=== PATIENT | female | born 1950 | race Caucasian/White ===

== ENCOUNTER → 2020-07-29 | Outpatient (CLI) | payer MEDICARE ==
--- NOTE | 2020-07-29 17:05 | BD ---
EXAMINATION TYPE: Axial Bone Density DATE OF EXAM: 07/29/2020 COMPARISON: NONE CLINICAL HISTORY: 70 YR OLD FEMALE.....ICD-10 CODE: Z78.0 Height: 63.1 Weight: 179 FRAX RISK QUESTIONS: Secondary Osteoporosis: YES 3. Menopause before 45: YES, AT 46 RISK FACTORS HISTORY OF: Postmenopausal woman: YES, AT ABOUT AT 46 YRS OLD Take estrogen and/or progesterone medications: IN THE PAST FOR ABOUT 4 YRS, TILL 50 YRS OLD Hyperparathyroidism: NO Adrenal Insufficiency: NO MEDICATIONS: Additional Medications: BLOOD THINNERS, BABY ASPIRIN, STATIN FOR CHOLESTEROL, VIT D, Additional History: CHOLESTEROL, HX OF BLOOD CLOTS, AND STROKE, EXAM MEASUREMENTS: Bone mineral densitometry was performed using the [employer] System. Bone mineral density as measured about the Lumbar spine is: ----- L1-L4(G/cm2): 1.343 T Score Values are as follows: ----- L1: 0.1 ----- L2: 0.6 ----- L3: 1.3 ----- L4: 2.7 ----- L1-L4: 1.4 Bone mineral density FIRST BONE DENSITY AT [facility] Bone mineral density about the R hip (g/cm2): 0.902 Bone mineral density about the L hip (g/cm2): 0.872 T Score values are as follows: -----R Neck: -1.5 -----L Neck: -1.7 -----R Total: -0.8 -----L Total: -1.1 Bone mineral density FIRST AT [facility] FRAX%s: THERE IS A 9.7% CHANCE FOR A MAJOR OSTEOPOROTIC FX AND A 1.3% FOR HIP......PROBABILITY FOR FX IN 10 YRS TIME IMPRESSION: Osteopenia (T Score between -2.5 and -1). There is slightly increased risk of fracture and the patient may be considered for treatment. Re-Screen 2-5 years. NOTE: T-SCORE=SD OF THE YOUNG ADULT MEAN.
--- NOTE | 2020-08-04 09:14 | MM ---
Reason for exam: screening (asymptomatic). Last mammogram was performed 3 years ago. History: Patient is postmenopausal. Family history of premenopausal breast cancer in sister at age 50 and breast cancer in aunt at age 60. Physical Findings: A clinical breast exam by your physician is recommended on an annual basis and results should be correlated with mammographic findings. MG Screening Mammo w CAD Bilateral CC and MLO view(s) were taken. Prior study comparison: August 03, 2017, mammogram, performed at [facility]. There are scattered fibroglandular densities. There are benign appearing round calcifications in the right breast. There is no discrete abnormality. ASSESSMENT: Negative, BI-RAD 1 RECOMMENDATION: Routine screening mammogram of both breasts in 1 year.
== END | disposition home or self-care (01) ==
LOC: RADMAMWWP 09:47
PROVIDERS: ATTEND Family Medicine
DX: Z12.31 Encounter for screening mammogram for malignant neoplasm of breast (principal); M85.80 Other specified disorders of bone density and structure, unspecified site; Z78.0 Asymptomatic menopausal state
CPT/HCPCS: 77067; 77080

== ENCOUNTER → 2021-06-24 | Outpatient (CLI) | payer MEDICARE ==
[2021-06-24 13:37] LABS: Basophils % (A) 0 %; Eosinophils # (A) 0.1 k/uL (0-0.7); Eosinophils % (A) 1 %; HCT 42.9 % (34.0-46.0); HGB 13.8 gm/dL (11.4-16.0); Lymphocytes # (A) 1.1 k/uL (1.0-4.8); Lymphocytes % (A) 15 %; MCH 29.3 pg (25.0-35.0); MCHC 32.2 g/dL (31.0-37.0); Mean Platelet Volume 8.7; Monocytes # (A) 0.5 k/uL (0-1.0); Monocytes % (A) 7 %; Neutrophils # (A) 5.4 k/uL (1.3-7.7); Neutrophils % (A) 76 %; Platelet Count 269 k/uL (150-450); RDW 13.3 % (11.5-15.5); WBC 7.1 k/uL (3.8-10.6)
[2021-06-24 13:50] LABS: Calcium 9.5 mg/dL (8.4-10.2); Potassium 4.9 mmol/L (3.5-5.1)
[2021-06-24 13:52] LABS: MCV 91.2 fL (80.0-100.0)
[2021-06-24 14:39] LABS: Prothrombin Time 10.7 sec (9.0-12.0)
--- NOTE | 2021-06-24 16:47 | US ---
EXAMINATION TYPE: US kidneys/renal and bladder DATE OF EXAM: 06/24/2021 COMPARISON: NONE CLINICAL HISTORY: R31.9 Hematuria. Pt states painless gross hematuria x 3 days EXAM MEASUREMENTS: Right Kidney: 9.6 x 4.2 x 4.5 cm Left Kidney: 9.9 x 4.1 x 4.0 cm Right Kidney: wnl Left Kidney: No evidence of hydro, possible renal calculi mid/lateral= 3mm in size Bladder: wnl Bilateral Jets seen: No IMPRESSION: 1. Nonobstructing left renal stone. 2. Renal ultrasound otherwise appears unremarkable. 3. Note is made ureteral jets are not identified during this exam.
== END | disposition home or self-care (01) ==
LOC: RADUSWWP 12:11
PROVIDERS: ATTEND Family Medicine
DX: N20.0 Calculus of kidney (principal)
CPT/HCPCS: 36415; 76770; 80048; 85025; 85610; 85730

== ENCOUNTER → 2021-07-09 | Outpatient (CLI) | payer MEDICARE ==
--- NOTE | 2021-07-09 13:16 | CT ---
EXAMINATION TYPE: CT urogram wo/w con DATE OF EXAM: 07/09/2021 HISTORY: Gross hematuria CT DLP: 3580mGycm Automated Exposure Control for Dose Reduction was Utilized. CONTRAST: CT scan of the abdomen and pelvis is performed without oral and without and with IV Contrast, patient injected with 100 ml mL of Isovue 300. Urogram protocol with 3-D reconstructed images created on an independent workstation and reviewed. COMPARISON: Renal ultrasound June 24, 2021 FINDINGS: KUB: Noncontrast images show no renal calculi bilaterally. Postcontrast images show symmetric medulla ry uptake and excretion without hydronephrosis or concerning solid or cystic renal mass in either kid colleen. Visualized portion of both ureters show no suspicious mass or calculus. Urinary bladder fills wi th contrast without suspicious intraluminal mass or calculus. Single inferior right-sided pelvic phle bolith axial image 146 series 3 noted. Adjacent smaller pelvic phleboliths inferior to this are prese nt. LUNG BASES: No significant abnormality is appreciated. LIVER/GB: No significant abnormality is appreciated. PANCREAS: No significant abnormality is seen. SPLEEN: No significant abnormality is seen. ADRENALS: No significant abnormality is seen. BOWEL: There is moderate size hiatal hernia. Appendix within normal limits from base of cecum. Some s igmoid colonic diverticula. No CT evidence for acute diverticulitis. No suspicious small or large bow el dilatation. UTERUS/ADNEXA: Uterus surgically absent. LYMPH NODES: No greater than 1cm abdominal or pelvic lymph nodes are appreciated. OSSEOUS STRUCTURES: Grade 1 anterolisthesis L4 on L5. Moderate disc space narrowing with vacuum disc phenomenon L4-L5 level. Mild disc space narrowing L3-L4 level. Multilevel facet arthropathy mid to lo wer lumbar spine. Moderate axial joint space loss in both hips. OTHER: No significant additional abnormality is seen. IMPRESSION: Source of hematuria not identified. No left-sided renal calculi seen.
== END | disposition home or self-care (01) ==
LOC: RADCTMAIN 10:02
PROVIDERS: ATTEND Urology
DX: R31.0 Gross hematuria (principal)
CPT/HCPCS: 82565; 84520; 74178; 36415; 74400; Q9967

== ENCOUNTER → 2022-05-17 | Outpatient (CLI) | payer MEDICARE ==
--- NOTE | 2022-05-18 09:56 | MM ---
Reason for Exam: Screening (asymptomatic). Last mammogram was performed 1 year(s) and 9 month(s) ago. Patient History: Menarche at age 16. First Full-Term at age 21. Left ovary removed at age 47. Right ovary removed at age 47. Hysterectomy at age 47. Postmenopausal. Maternal aunt had breast cancer, age 60. Sister had breast cancer, age 50. Risk Values: Allyson 5 year model risk: 2.9%. NCI Lifetime model risk: 8.4%. Prior Study Comparison: 01/01/2008 Bilateral Screening Mammogram, [facility]. 08/03/2017 Screening Mammogram, [facility]. 07/29/2020 Bilateral Screening Mammogram, [facility]. Tissue Density: There are scattered fibroglandular densities. Findings: Analyzed By CAD. There is no suspicious group of microcalcifications or new suspicious mass in either breast. No significant change from prior exams. Overall Assessment: Negative, BI-RAD 1 Management: Screening Mammogram of both breasts in 1 year. A clinical breast exam by your physician is recommended on an annual basis and results should be correlated with mammographic findings. Electronically signed and approved by: Ward Mcgowan D.O.
== END | disposition home or self-care (01) ==
LOC: RADMAMWWP 12:44
PROVIDERS: ATTEND Family Medicine
DX: Z12.31 Encounter for screening mammogram for malignant neoplasm of breast (principal); Z78.0 Asymptomatic menopausal state; Z80.3 Family history of malignant neoplasm of breast
CPT/HCPCS: 77067

== ENCOUNTER 2023-04-27 13:41 | Inpatient (IN) | payer MEDICARE ==
[2023-04-27] MEDS ORDERED: DILTIAZEM DRIP BOLUS FROM BAG 1 MG SOLN IV ONE (14:30)
[2023-04-27] MEDS ORDERED: SODIUM CHLORIDE 0.9% 500 ML 500 ML IV STA (14:33)
[2023-04-27 14:44] LABS: Anisocytosis Slight; Basophils % (A) 0 %; Eosinophils # (A) 0.1 k/uL (0-0.7); Eosinophils % (A) 1 %; HCT 33.1 % (34.0-46.0); Hypochromasia Marked; Lymphocytes # (A) 1.3 k/uL (1.0-4.8); Lymphocytes % (A) 16 %; MCH 20.6 pg (25.0-35.0); MCHC 30.1 g/dL (31.0-37.0); MCV 68.5 fL (80.0-100.0); Microcytosis Marked; Monocytes # (A) 0.6 k/uL (0-1.0); Monocytes % (A) 7 %; Neutrophils % (A) 74 %; Platelet Count 357 k/uL (150-450); Poikilocytosis Slight; RBC 4.83 m/uL (3.80-5.40); RDW 17.7 % (11.5-15.5); WBC 8.1 k/uL (3.8-10.6)
[2023-04-27] MEDS: DILTIAZEM 125 MG in SODIUM CHLORIDE 0.9% 100 ML IV SCH ×2 (14:52→23:21)
[2023-04-27 14:57] LABS: ALT 14 U/L (4-34); AST 27 U/L (14-36); African American GFR (CKD) 71 (>60 ml/min/1.73 sqM); Albumin 3.8 g/dL (3.5-5.0); Alkaline Phosphatase 98 U/L (38-126); Anion Gap 9 mmol/L; Blood Urea Nitrogen 20 mg/dL (7-17); Calcium 9.2 mg/dL (8.4-10.2); Carbon Dioxide 23 mmol/L (22-30); Chloride 107 mmol/L (98-107); Glucose 92 mg/dL (74-99); Non-African American GFR(CKD) 61 (>60 ml/min/1.73 sqM); Partial Thromboplastin Time 23.4 sec (22.0-30.0); Prothrombin Time 10.6 sec (9.0-12.0); Sodium 139 mmol/L (137-145); Total Bilirubin 0.6 mg/dL (0.2-1.3); Total Protein 6.7 g/dL (6.3-8.2)
--- NOTE | 2023-04-27 15:04 | XR ---
EXAMINATION TYPE: XR chest 2V DATE OF EXAM: 04/27/2023 COMPARISON: NONE TECHNIQUE: PA and lateral views submitted. HISTORY: Dysrhythmia FINDINGS: The lungs are clear and there is no pneumothorax, pleural effusion, or focal pneumonia. Heart size normal and no overt failure. Osseous structures demonstrate hypertrophic and degenerative changes of the spine. Limited inspiration with elevated right hemidiaphragm. Retrocardiac density could represen t a hiatal hernia. IMPRESSION: 1. No acute process. Suspect large retrocardiac density represents hiatal hernia as previously noted by CT exam 07/09/2021.
--- NOTE | 2023-04-27 15:28 | ED ---
General Adult HPI - General Chief complaint: Arrhythmia/Palpitations Stated complaint: Rapid Heart Beat-sent by Time Seen by Provider: 04/27/23 14:10 Source: patient, RN notes reviewed, old records reviewed Mode of arrival: ambulatory - History of Present Illness Initial comments: This is a 72-year-old female presents emergency Department with a past medical history significant for atrial fibrillation. Patient states she was at her doctor's office when it was determined that her heart was racing so she was sent to the emergency department.patient denies any palpitations. Patient denies chest pain. Patient denies any difficulty breathing shortness of breath per patient denies any recent fever chills or cough. Patient denies any abdominal pain patient denies nausea vomiting diarrhea. Patient denies headache patient denies numbness weakness. - Related Data Home Medications Medication Instructions Recorded Confirmed Apixaban [Eliquis] 5 mg PO BID 04/27/23 04/27/23 Aspirin EC [Ecotrin Low Dose] 81 mg PO DAILY 04/27/23 04/27/23 Atorvastatin [Lipitor] 40 mg PO HS 04/27/23 04/27/23 Cholecalciferol [Vitamin D3 (25 50 mcg PO DAILY 04/27/23 04/27/23 Mcg = 1000 Iu)] Flecainide [Tambocor] 50 mg PO Q12HR 04/27/23 04/27/23 Allergies Allergy/AdvReac Type Severity Reaction Status Date / Time No Known Allergies Allergy Verified 04/27/23 14:31 Review of Systems ROS Statement: Those systems with pertinent positive or pertinent negative responses have been documented in the HPI. ROS Other: All systems not noted in ROS Statement are negative. Past Medical History Past Medical History: Atrial Fibrillation History of Any Multi-Drug Resistant Organisms: None Reported Past Surgical History: Hysterectomy Past Psychological History: No Psychological Hx Reported Smoking Status: Never smoker Past Alcohol Use History: None Reported Past Drug Use History: None Reported General Exam - General Exam Comments Initial Comments: GENERAL: Patient is well-developed and well-nourished. Patient is nontoxic and well- hydrated and is in mild distress. ENT: Neck is soft and supple. No significant lymphadenopathy is noted. Oropharynx is clear. Moist mucous membranes. Neck has full range of motion without eliciting any pain. EYES: The sclera were anicteric and conjunctiva were pink and moist. Extraocular movements were intact and pupils were equal round and reactive to light. Eyelids were unremarkable. PULMONARY: Unlabored respirations. Good breath sounds bilaterally. No audible rales rhonchi or wheezing was noted. CARDIOVASCULAR: Patient's heart rate is about 150 beats a minute ABDOMEN: Soft and nontender with normal bowel sounds. SKIN: Skin is clear with no lesions or rashes and otherwise unremarkable. NEUROLOGIC: Patient is alert and oriented x3. Cranial nerves II through XII are grossly intact. Motor and sensory are also intact. Normal speech, volume and content. Symmetrical smile. MUSCULOSKELETAL: Normal extremities with adequate strength and full range of motion. No lower extremity swelling or edema. No calf tenderness. LYMPHATICS: No significant lymphadenopathy is noted PSYCHIATRIC: Normal psychiatric evaluation. Course Vital Signs 04/27/23 04/27/23 13:44 15:15 Temperature 98.1 F Pulse Rate 151 H 140 H Respiratory 18 18 Rate Blood Pressure 124/81 130/91 O2 Sat by Pulse 98 99 Oximetry Medical Decision Making - Medical Decision Making EKG as interpreted by myself. EKG shows atrial flutter at 148 bpm QRS 166 QT interval 310 QTC is 395 per patient's EKG shows no ST segment patient or dep ression Was pt. sent in by a medical professional or institution (, PA, CUSTOMER CONSULTING MANAGER, urgent care, hospital, or skilled nursing...) When possible be specific @ -Patient was sent in by her primary medical care doctor Did you speak to anyone other than the patient for history (EMS, parent, family, police, friend...)? What history was obtained from this source @ -No Did you review nursing and triage notes (agree or disagree)? Why? @ -I reviewed and agree with nursing and triage notes Were old charts reviewed (outside hosp., previous admission, EMS record, old EKG, old radiological studies, urgent care reports/EKG's, skilled nursing records)? Report findings @ -I reviewed prior charts from prior labwork on this patient Differential Diagnosis (chest pain, altered mental status, abdominal pain women, abdominal pain men, vaginal bleeding, weakness, fever, dyspnea, syncope, headache, dizziness, GI bleed, back pain, seizure, CVA, palpatations, mental health, musculoskeletal)? @ -Differential Palpitations Ventricular arrhythmias, atrial arrhythmias, myocardial infarction, anemia, thyrotoxicosis, electrolyte imbalance, hypokalemia, pulmonary embolism, pulmonary disease, drugs, alcohol, anxiety, stress.... This is not meant to be an all-inclusive list. EKG interpreted by me (3pts min.). @ -As above X-rays interpreted by me (1pt min.). @ -Chest x-ray showed no acute abnormality CT interpreted by me (1pt min.). @ -None done U/S interpreted by me (1pt. min.). @ -None done What testing was considered but not performed or refused? (CT, X-rays, U/S, labs)? Why? @ -None What meds were considered but not given or refused? Why? @ -None Did you discuss the management of the patient with other professionals (professionals i.e. , PA, CUSTOMER CONSULTING MANAGER, lab, RT, psych nurse, social media campaign manager, theatrical performer, teacher, maritime officer, case maker)? Give summary @ -I spoke with some physicians they agreed to admit the patient I admitted the patient I wrote admitting orders Was smoking cessation discussed for >3mins.? @ -No Was critical care preformed (if so, how long)? @ -35 minutes Were there social determinants of health that impacted care today? How? (Homelessness, low income, unemployed, alcoholism, drug addiction, transportation, low edu. Level, literacy, decrease access to med. care, longterm, rehab)? @ -No Was there de-escalation of care discussed even if they declined (Discuss DNR or withdrawal of care, Hospice)? DNR status @ -No What co-morbidities impacted this encounter? (DM, HTN, Smoking, COPD, CAD, Cancer, CVA, ARF, Chemo, Hep., AIDS, mental health diagnosis, sleep apnea, mor bid obesity)? @ -None Was patient admitted / discharged? Hospital course, mention meds given and route, prescriptions, significant lab abnormalities, going to OR and other pertinent info. @ -I started the patient on Cardizem after Cardizem bolus. Patient's heart rate did start to slow down and she remained asymptomatic. I spoke with some physicians he agreed to admit the patient admitted the patient wrote admitting orders and I consulted cardiology. Undiagnosed new problem with uncertain prognosis? @ -No Drug Therapy requiring intensive monitoring for toxicity (Heparin, Nitro, Insulin, Cardizem)? @ -No Were any procedures done? @ -No Diagnosis/symptom? @ -A. fib with rapid ventricular response Acute, or Chronic, or Acute on Chronic? @ -Acute Uncomplicated (without systemic symptoms) or Complicated (systemic symptoms)? @ -Complicated Side effects of treatment? @ -No Exacerbation, Progression, or Severe Exacerbation? @ -No Poses a threat to life or bodily function? How? (Chest pain, [place], [place], pneumonia, PE, COPD, DKA, ARF, appy, cholecystitis, CVA, Diverticulitis, Homicidal, Suicidal, threat to staff... and all critical care pts) @ -Yes this can lead to poor perfusion and end organ dysfunction - Lab Data Result diagrams: 04/27/23 14:36 04/27/23 14:36 Lab Results 04/27/23 04/27/23 04/27/23 Range/Units 14:36 14:36 14:36 WBC 8.1 (3.8-10.6) k/uL RBC 4.83 (3.80-5.40) m/uL Hgb 10.0 L (11.4-16.0) gm/dL Hct 33.1 L (34.0-46.0) % MCV 68.5 L (80.0-100.0) fL MCH 20.6 L (25.0-35.0) pg MCHC 30.1 L (31.0-37.0) g/dL RDW 17.7 H (11.5-15.5) % Plt Count 357 (150-450) k/uL MPV 7.0 Neutrophils % 74 % Lymphocytes % 16 % Monocytes % 7 % Eosinophils % 1 % Basophils % 0 % Neutrophils # 6.0 (1.3-7.7) k/uL Lymphocytes # 1.3 (1.0-4.8) k/uL Monocytes # 0.6 (0-1.0) k/uL Eosinophils # 0.1 (0-0.7) k/uL Basophils # 0.0 (0-0.2) k/uL Hypochromasia Marked Poikilocytosis Slight Anisocytosis Slight Microcytosis Marked PT 10.6 (9.0-12.0) sec INR 1.0 (<1.2) APTT 23.4 (22.0-30.0) sec Sodium 139 (137-145) mmol/L Potassium 5.0 (3.5-5.1) mmol/L Chloride 107 (98-107) mmol/L Carbon Dioxide 23 (22-30) mmol/L Anion Gap 9 mmol/L BUN 20 H (7-17) mg/dL Creatinine 0.95 (0.52-1.04) mg/dL Est GFR (CKD-EPI)AfAm 71 (>60 ml/min/1.73 sqM) Est GFR (CKD-EPI)NonAf 61 (>60 ml/min/1.73 sqM) Glucose 92 (74-99) mg/dL Calcium 9.2 (8.4-10.2) mg/dL Magnesium 2.0 (1.6-2.3) mg/dL Total Bilirubin 0.6 (0.2-1.3) mg/dL AST 27 (14-36) U/L ALT 14 (4-34) U/L Alkaline Phosphatase 98 (38-126) U/L Troponin I (0.000-0.034) ng/mL Total Protein 6.7 (6.3-8.2) g/dL Albumin 3.8 (3.5-5.0) g/dL 04/27/23 Range/Units 14:36 WBC (3.8-10.6) k/uL RBC (3.80-5.40) m/uL Hgb (11.4-16.0) gm/dL Hct (34.0-46.0) % MCV (80.0-100.0) fL MCH (25.0-35.0) pg MCHC (31.0-37.0) g/dL RDW (11.5-15.5) % Plt Count (150-450) k/uL MPV Neutrophils % % Lymphocytes % % Monocytes % % Eosinophils % % Basophils % % Neutrophils # (1.3-7.7) k/uL Lymphocytes # (1.0-4.8) k/uL Monocytes # (0-1.0) k/uL Eosinophils # (0-0.7) k/uL Basophils # (0-0.2) k/uL Hypochromasia Poikilocytosis Anisocytosis Microcytosis PT (9.0-12.0) sec INR (<1.2) APTT (22.0-30.0) sec Sodium (137-145) mmol/L Potassium (3.5-5.1) mmol/L Chloride (98-107) mmol/L Carbon Dioxide (22-30) mmol/L Anion Gap mmol/L BUN (7-17) mg/dL Creatinine (0.52-1.04) mg/dL Est GFR (CKD-EPI)AfAm (>60 ml/min/1.73 sqM) Est GFR (CKD-EPI)NonAf (>60 ml/min/1.73 sqM) Glucose (74-99) mg/dL Calcium (8.4-10.2) mg/dL Magnesium (1.6-2.3) mg/dL Total Bilirubin (0.2-1.3) mg/dL AST (14-36) U/L ALT (4-34) U/L Alkaline Phosphatase (38-126) U/L Troponin I <0.012 (0.000-0.034) ng/mL Total Protein (6.3-8.2) g/dL Albumin (3.5-5.0) g/dL Critical Care Time Critical Care Time: Yes Total Critical Care Time: 35 Disposition Clinical Impression: Atrial fibrillation with rapid ventricular response Disposition: ADMITTED IP TO THIS HOSP Referrals: Juan Diego Tolbert MD [Primary Care Provider] - 1-2 days Time of Disposition: 16:02
[2023-04-27] MEDS ORDERED: NITROGLYCERIN SL TABS 0.4 MG TAB SUBLINGUAL PRN (16:03)
[2023-04-27] MEDS ORDERED: ATORVASTATIN 40 MG TAB PO SCH (21:00)
[2023-04-27] MEDS ORDERED: FLECAINIDE 50 MG TAB PO SCH (21:00)
[2023-04-27] MEDS: APIXABAN 5 MG TAB PO SCH (21:01)
[2023-04-27] MEDS ORDERED: DIGOXIN 250 MCG TAB PO STA (21:15)
--- NOTE | 2023-04-28 04:02 | P.HPIM ---
History of Present Illness H&P Date: 04/27/23 Chief Complaint: afib 72 year old female with afib patient was sent in from her PCP office due to afib with RVR. she is asymptomatic ,and went to her PCP office for routine visit, thats when she was found to be in afib with RVR, she denies palpitations chest pain , SOB, diz ziness, profuse sweating. she claims that she feels completely normal , no changes has been made recently to her meds. she was also found to have microcytic anemia , she takes eliquis for afib , but denies any vaginal or GI bleeding , she is not aware of any history of microcytic anemia denies any recent travel or hospital stay , denies any active cancer or history of blood clots. denies any cough, sore throat, fever, chills. nasuea or vomiting review of systems Pertinent positives as noted in HPI. All other systems were reviewed and are negative on exam Constitutional: No acute distress, conversant, pleasant Eyes: Anicteric sclerae, moist conjunctiva, Pupils equal round reactive to light ENMT: NC/AT Oropharynx clear, no erythema, or exudates Neck: Supple, no masses, or JVD No carotid bruits No thyromegaly Lungs: Clear to auscultation Clear to percussion Normal respiratory effort, no accessory muscle use Cardiovascular: Heart irregular in rate and rhythm, No murmurs, gallops, or rubs No peripheral edema Abdominal: Soft Nontender, no guarding, rebound or rigidity Abdomen moving with respiration Normoactive bowel sounds No hepatomegaly, No splenomegaly No palpable mass No abdominal wall hernia noted Extremities: No digital cyanosis No clubbing Pedal pulses intact and symmetrical Radial pulses intact and symmetrical No calf tenderness Psychiatric: Alert and oriented to person, place and time Appropriate affect fair judgement Neuro Muscles Strength 5/5 in all 4 extremities Sensation to light touch grossly present throughout Cranial nerves II-XII grossly intact Lymphatics: no palpable cervical or supraclavicular lymph nodes 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 Past Anesthesia/Blood Transfusion Reactions: No Reported Reaction Smoking Status: Never smoker - Past Family History Sister(s) Family Medical History: AFIB Mother Family Medical History: AFIB Medications and Allergies Home Medications Medication Instructions Recorded Confirmed Type Apixaban [Eliquis] 5 mg PO BID 04/27/23 04/27/23 History Aspirin EC [Ecotrin Low Dose] 81 mg PO DAILY 04/27/23 04/27/23 History Atorvastatin [Lipitor] 40 mg PO HS 04/27/23 04/27/23 History Cholecalciferol [Vitamin D3 (25 50 mcg PO DAILY 04/27/23 04/27/23 History Mcg = 1000 Iu)] Flecainide [Tambocor] 50 mg PO Q12HR 04/27/23 04/27/23 History Allergies Allergy/AdvReac Type Severity Reaction Status Date / Time No Known Allergies Allergy Verified 04/27/23 14:31 Physical Exam Vitals: Vital Signs Temp Pulse Pulse Pulse Resp BP BP 04/27/23 23:17 97.8 F 126 H 17 112/76 04/27/23 19:45 97.6 F 138 H 16 108/77 04/27/23 18:15 144 H 108/73 04/27/23 17:54 98 F 149 H 20 124/88 04/27/23 16:46 146 H 18 113/80 04/27/23 15:15 140 H 18 130/91 04/27/23 13:44 98.1 F 151 H 18 124/81 Pulse Ox 04/27/23 23:17 94 L 04/27/23 19:45 96 04/27/23 18:15 04/27/23 17:54 97 04/27/23 16:46 96 04/27/23 15:15 99 04/27/23 13:44 98 Intake and Output 04/27/23 04/27/23 04/28/23 14:59 22:59 06:59 Intake Total 22.25 80.333 Balance 22.25 80.333 Intake: IV 20 Diltiazem 125 mg In 20 Sodium Chloride 0.9% 100 ml @ 5 MG/HR 5 mls/hr IV .Q24H [facility] Rx#:[id number] Intake, IV Titration 2.25 80.333 Amount Diltiazem 125 mg In 2.25 80.333 Sodium Chloride 0.9% 100 ml @ 5 MG/HR 5 mls/hr IV .Q24H [facility] Rx#:[id number] Other: Voiding Method Toilet Weight 83.915 kg 83.915 kg Results CBC & Chem 7: 04/27/23 14:36 04/27/23 14:36 Labs: Abnormal Lab Results - Last 24 Hours (Table) 04/27/23 04/27/23 Range/Units 14:36 14:36 Hgb 10.0 L (11.4-16.0) gm/dL Hct 33.1 L (34.0-46.0) % MCV 68.5 L (80.0-100.0) fL MCH 20.6 L (25.0-35.0) pg MCHC 30.1 L (31.0-37.0) g/dL RDW 17.7 H (11.5-15.5) % BUN 20 H (7-17) mg/dL Thrombosis Risk Factor Assmnt - Choose All That Apply Each Factor Represents 1 point: Medical pt on bed rest Each Risk Factor Represents 2 Points: Age 61-74 years Thrombosis Risk Factor Assessment Total Risk Factor Score: 3 Thrombosis Risk Factor Assessment Level: Moderate Risk Assessment and Plan Assessment: 72 year old female with history of afib, found to have afib with RVR at her PCP office and sent to our facility , i discussed the case with ED doc and I accepte dthe admission for afib with RVR with anticipated length of stay > 2 midnights afib with RVR resume eliquis given cardizem bolus and started on drip. cardizem drip maxed with HR still in 140-150. patient loaded with digoxin, given initial dose of 500 mcg PO , then will give 250 mcg q 8hrs X 2 continue with flecainide bid ekg monitor monitor electrolytes K 5.0 Na 139 BUN 20 cr 0.9 monitor vital signs , GOal HR <110 trops negative liver enzymes unremarkable check TSH and free T4 microcytic anemia Hgb 10.0 MCV 68 denies history of thalacemia check iron studies denies any GI bleeding full code DVT PPX on eliquis for afib
[2023-04-28] MEDS ORDERED: SODIUM CHLORIDE 0.9% 1,000 ML IV SCH ×2 (04:15→09:30)
[2023-04-28] MEDS ORDERED: DIGOXIN 250 MCG TAB PO ONE (05:30)
[2023-04-28] MEDS: DILTIAZEM 125 MG in SODIUM CHLORIDE 0.9% 100 ML IV SCH (06:16)
[2023-04-28 08:55] LABS: Chol/HDL Ratio 2.32 Ratio; VLDL Calculation 17.24 mg/dL (5.00-40.00)
[2023-04-28] MEDS ORDERED: ASPIRIN 325 MG TAB PO SCH (09:00)
[2023-04-28] MEDS ORDERED: CHOLECALCIFEROL 25 MCG (1000 IU) TABLET PO SCH (09:00)
[2023-04-28] MEDS ORDERED: ASPIRIN 81 MG PO SCH (09:00)
[2023-04-28] MEDS ORDERED: FLECAINIDE 50 MG TAB PO SCH (09:00)
[2023-04-28] MEDS ORDERED: IV FLUID CONTINUATION 1,000 ML IV ONE (10:13)
[2023-04-28] MEDS ORDERED: PROPOFOL 10 MG/ML 20 ML VIAL IV ONE (10:13)
[2023-04-28 11:06] VITALS: RESP 16
[2023-04-28] MEDS: APIXABAN 5 MG TAB PO SCH (11:17)
[2023-04-28 11:19] VITALS: BP 107/58
--- NOTE | 2023-04-28 11:29 | P.CRDCN ---
History of Present Illness History of present illness: HISTORY OF PRESENT ILLNESS: This is a 72-year-old female with a past medical history significant for hyperlipidemia and paroxysmal atrial fibrillation/flutter. Patient follows with a library technology instructor in [place]. We have been asked to see the patient in consultation for a flutter with RVR. Patient examined at the bedside. Patient states yesterday she was at her primary care physician's office for routine appointment when she was found to be tachycardic. She states that she did not have any chest pain or pressure. She denied having any shortness of breath. She denied any dizziness or lightheadedness. Denied having any palpitations. The patient was instructed to come to the emergency room. The patient was found to be in a flutter with RVR. She was started on IV Cardizem. The patient states that she was started on flecainide back in February. She states she was supposed to have a cardioversion performed at that time but spontaneously converted to sinus mechanism. She reports she has been compliant with her anticoagulation and has not missed any doses. * EKG reveals atrial flutter with RVR * Chest xray negative for acute process * Current home cardiac medications include atorvastatin 40 mg at night, flecainide 50 mg twice a day, aspirin 81 mg daily, and Eliquis 5mg BID REVIEW OF SYSTEMS: At the time of my exam: CONSTITUTIONAL: Denies fever or chills. HEENT: Denies blurred vision, vision changes, or eye pain. Denies hemoptysis CARDIOVASCULAR: Denies chest pain. Denies orthopnea. Denies PND. Denies palpitations RESPIRATORY: Denies shortness of breath. GASTROINTESTINAL: Denies abdominal pain. Denies nausea or vomiting. HEMATOLOGIC: Denies bleeding disorders. GENITOURINARY: Denies any blood in urine. SKIN: Denies pruitis. Denies rash. PHYSICAL EXAM: VITAL SIGNS: Reviewed. GENERAL: Well-developed in no acute distress. HEENT: Head is normocephalic. Pupils are equal, round. Sclerae anicteric. Mucous membranes of the mouth are moist. Neck supple. No JVD or thyromegaly LUNGS: Respirations even and unlabored. Lungs essentially clear to auscultation bilaterally. HEART: Tachycardic. Regular rate and rhythm. S1 and S2 heard. ABDOMEN: Soft. Nondistended. Nontender. EXTREMITIES: Normal range of motion. No clubbing or cyanosis. Peripheral pulses intact. No lower extremity edema NEUROLOGIC: Awake and alert. Oriented x 3. ASSESSMENT: Typical atrial flutter with RVR History of paroxysmal atrial fibrillation Hyperlipidemia PLAN: Obtain 2-D echo to assess cardiac structure and function Resume home cardiac medications Increased flecainide to 100mg BID Patient to undergo cardioversion today with Dr. Lockhart Further recommendations pending patient's course Nurse practitioner note has been reviewed by physician. Signing provider agrees with the documented findings, assessment, and plan of care. 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 Past Anesthesia/Blood Transfusion Reactions: No Reported Reaction Smoking Status: Never smoker - Past Family History Sister(s) Family Medical History: AFIB Mother Family Medical History: AFIB Medications and Allergies Home Medications Medication Instructions Recorded Confirmed Type Apixaban [Eliquis] 5 mg PO BID 04/27/23 04/27/23 History Aspirin EC [Ecotrin Low Dose] 81 mg PO DAILY 04/27/23 04/27/23 History Atorvastatin [Lipitor] 40 mg PO HS 04/27/23 04/27/23 History Cholecalciferol [Vitamin D3 (25 50 mcg PO DAILY 04/27/23 04/27/23 History Mcg = 1000 Iu)] Flecainide [Tambocor] 50 mg PO Q12HR 04/27/23 04/27/23 History Allergies Allergy/AdvReac Type Severity Reaction Status Date / Time No Known Allergies Allergy Verified 04/27/23 14:31 Physical Exam Vitals: Vital Signs Temp Pulse Pulse Pulse Resp BP BP 04/28/23 04:27 98.0 F 131 H 18 116/68 04/27/23 23:17 97.8 F 126 H 17 112/76 04/27/23 19:45 97.6 F 138 H 16 108/77 04/27/23 18:15 144 H 108/73 04/27/23 17:54 98 F 149 H 20 124/88 04/27/23 16:46 146 H 18 113/80 04/27/23 15:15 140 H 18 130/91 04/27/23 13:44 98.1 F 151 H 18 124/81 Pulse Ox 04/28/23 04:27 97 04/27/23 23:17 94 L 04/27/23 19:45 96 04/27/23 18:15 04/27/23 17:54 97 04/27/23 16:46 96 04/27/23 15:15 99 04/27/23 13:44 98 Intake and Output 04/27/23 04/28/23 04/28/23 22:59 06:59 14:59 Intake Total 22.25 184.083 Balance 22.25 184.083 Intake: IV 20 Diltiazem 125 mg In 20 Sodium Chloride 0.9% 100 ml @ 5 MG/HR 5 mls/hr IV .Q24H [facility] Rx#:[id number] Intake, IV Titration 2.25 184.083 Amount Diltiazem 125 mg In 2.25 184.083 Sodium Chloride 0.9% 100 ml @ 5 MG/HR 5 mls/hr IV .Q24H [facility] Rx#:[id number] Other: Voiding Method Toilet Weight 83.915 kg Results 04/27/23 14:36 04/27/23 14:36 Cardiac Enzymes 04/27/23 04/27/23 04/27/23 Range/Units 14:36 14:36 17:23 AST 27 (14-36) U/L Troponin I <0.012 <0.012 (0.000-0.034) ng/mL 04/27/23 Range/Units 19:54 AST (14-36) U/L Troponin I <0.012 (0.000-0.034) ng/mL Coagulation 04/27/23 Range/Units 14:36 PT 10.6 (9.0-12.0) sec APTT 23.4 (22.0-30.0) sec CBC 04/27/23 Range/Units 14:36 WBC 8.1 (3.8-10.6) k/uL RBC 4.83 (3.80-5.40) m/uL Hgb 10.0 L (11.4-16.0) gm/dL Hct 33.1 L (34.0-46.0) % Plt Count 357 (150-450) k/uL Comprehensive Metabolic Panel 04/27/23 Range/Units 14:36 Sodium 139 (137-145) mmol/L Potassium 5.0 (3.5-5.1) mmol/L Chloride 107 (98-107) mmol/L Carbon Dioxide 23 (22-30) mmol/L BUN 20 H (7-17) mg/dL Creatinine 0.95 (0.52-1.04) mg/dL Glucose 92 (74-99) mg/dL Calcium 9.2 (8.4-10.2) mg/dL AST 27 (14-36) U/L ALT 14 (4-34) U/L Alkaline Phosphatase 98 (38-126) U/L Total Protein 6.7 (6.3-8.2) g/dL Albumin 3.8 (3.5-5.0) g/dL Current Medications Generic Name Dose Route Start Last Admin Trade Name Freq PRN Reason Stop Dose Admin Apixaban 5 mg 04/27/23 21:00 04/27/23 21:01 Apixaban 5 Mg Tab PO 5 mg BID BERTHA Administration Protocol Aspirin 81 mg 04/28/23 09:00 Aspirin 81 Mg PO DAILY [facility] Atorvastatin Calcium 40 mg 04/27/23 21:00 04/27/23 21:00 Atorvastatin 40 Mg Tab PO 40 mg HS BERTHA Administration Cholecalciferol 50 mcg 04/28/23 09:00 Cholecalciferol 25 Mcg (1000 Iu) Tablet PO DAILY BERTHA Flecainide Acetate 50 mg 04/27/23 21:00 04/27/23 18:28 Flecainide 50 Mg Tab PO 50 mg Q12HR BERTHA Administration Diltiazem HCl 125 mg/ Sodium 125 mls @ 15 mls/hr 04/27/23 14:30 04/28/23 06:16 Chloride IV 10 mg/hr .Q8H20M BERTHA 10 mls/hr Administration 15 MG/HR Sodium Chloride 1,000 mls @ 75 mls/hr 04/28/23 04:15 04/28/23 04:18 Saline 0.9% IV 75 mls/hr .[id number] BERTHA Administration Nitroglycerin 0.4 mg 04/27/23 16:03 Nitroglycerin Sl Tabs 0.4 Mg Tab SUBLINGUAL Q5M PRN Chest Pain Intake and Output 04/27/23 04/28/23 04/28/23 22:59 06:59 14:59 Intake Total 22.25 184.083 Balance 22.25 184.083 Intake: IV 20 Diltiazem 125 mg In 20 Sodium Chloride 0.9% 100 ml @ 5 MG/HR 5 mls/hr IV .Q24H [facility] Rx#:[id number] Intake, IV Titration 2.25 184.083 Amount Diltiazem 125 mg In 2.25 184.083 Sodium Chloride 0.9% 100 ml @ 5 MG/HR 5 mls/hr IV .Q24H [facility] Rx#:[id number] Other: Voiding Method Toilet Weight 83.915 kg 04/27/23 14:36 04/27/23 14:36
--- NOTE | 2023-04-28 11:36 | CA ---
Transthoracic Echo Report Name: Kirti De La Rosa Age: 72 Gender: F : 1950 Exam Date: 04/28/2023 08:56 Exam Location: [place] [facility] Ht (in): 62 Wt (lb): 185 Ordering Physician: Genia Chaney Attending/Referring Phys: [id number], Shiv Chemical Engineering Teacher Ivanna Santiago [facility] Procedure CPT: Indications: LV function Cardiac Hx: Technical Quality: Technically difficult study Contrast 1: Total Dose (mL): Contrast 2: Total Dose (mL): MEASUREMENTS (Male / Female) Normal Values 2D ECHO LV Diastolic Diameter PLAX 3.6 cm 4.2 - 5.9 / 3.9 - 5.3 cm LV Systolic Diameter PLAX 2.7 cm IVS Diastolic Thickness 1.0 cm 0.6 - 1.0 / 0.6 - 0.9 cm LVPW Diastolic Thickness 1.1 cm 0.6 - 1.0 / 0.6 - 0.9 cm LV Relative Wall Thickness 0.6 LVOT Diameter 2.0 cm Ascending Aorta Diameter 3.1 cm M-MODE Aortic Root Diameter MM 2.6 cm LA Systolic Diameter MM 4.5 cm LA Ao Ratio MM 1.7 AV Cusp Separation MM 2.2 cm DOPPLER AV Peak Velocity 114.1 cm/s AV Peak Gradient 5.2 mmHg AV Mean Velocity 93.3 cm/s AV Mean Gradient 3.7 mmHg AV Velocity Time Integral 17.8 cm LVOT Peak Velocity 102.0 cm/s LVOT Peak Gradient 4.2 mmHg LVOT Velocity Time Integral 15.5 cm LVOT Stroke Volume 47.8 cm??? LVOT Stroke Volume Index 25.9 ml/m??? LVOT Cardiac Index 2940.0 cm???/min???m??? AV Area Cont Eq vti 2.7 cm??? AV Area Cont Eq pk 2.8 cm??? Mitral E Point Velocity 86.5 cm/s MV Deceleration Time 99.8 ms LV E' Lateral Velocity 18.8 cm/s Mitral E to LV E' Lateral Ratio 4.6 LV E' Septal Velocity 11.9 cm/s Mitral E to LV E' Septal Ratio 7.2 TR Peak Velocity 272.4 cm/s TR Peak Gradient 29.7 mmHg Right Atrial Pressure 8.0 mmHg Pulmonary Artery Systolic Pressu 37.7 mmHg Right Ventricular Systolic Press 37.7 mmHg FINDINGS Left Ventricle Mildly increased left ventricular wall thickness. Small left ventricular cavity. Low normal left ventricular systolic function with no obvious regional wall motion abnormalities. Left ventricular ejection fraction is estimated at 50-55%. Right Ventricle Mild right ventricular dilatation. Mild pulmonary hypertension. Right Atrium Mild right atrial dilatation. Left Atrium Mild left atrial dilatation. Mitral Valve Structurally normal mitral valve. Mild mitral regurgitation. Aortic Valve Trileaflet aortic valve. No aortic regurgitation. Tricuspid Valve Structurally normal tricuspid valve. Mild tricuspid regurgitation. Pulmonic Valve Pulmonic valve not well visualized. Pericardium No pericardial effusion. Echo free space anterior to the right ventricle likely represents a fat pad. Aorta Normal size aortic root and proximal ascending aorta. CONCLUSIONS Normal LV function Mild pulmonary hypertension Previewed by: Dr. Parish Nunez MD (Electronically Signed) Final Date: 28 April 2023 11:36
[2023-04-28 11:54] LABS: % Iron Saturation 3.92 (12.00-45.00); Ferritin 6.7 ng/mL (10.0-291.0); Iron 17 UG/DL (50-170); Total Iron Binding Capacity 434 UG/DL (228-460)
[2023-04-28 14:50] VITALS: PULSE 108; TEMP 98.4
--- NOTE | 2023-04-28 17:51 | P.DS ---
Providers Date of admission: 04/27/23 16:04 Expected date of discharge: 04/28/23 Attending physician: Diamond Zapien DO Consults: 04/27/23 16:03 Consult Physician Urgent Consulting Provider: [facility] Consult Reason/Comments: A. fib with rapid ventricular response Do you want consulting provider notified?: Yes Primary care physician: Juan Diego Tolbert MD Hospital Course: Discharge Diagnosis: Atrial Flutter with Rapid Ventricular Response Microcytic anemia. Consistent with iron deficiency. Severe iron deficiency anemia Hospital Course: A 72-year-old female diagnosed with A. fib in the past prior CVA, and prior iron deficiency anemia presented to the hospital at the direction of her primary care physician when she went in for routine office visit was found to have tachycardia. In the ER EKG demonstrated A. fib with RVR. She was started on a Cardizem drip. Laboratory analysis was unremarkable. She continued to be tachycardic and was orally dig loaded. She was seen by cardiology the next day he underwent cardioversion which was successful. Her flecainide was increased to 100 mg twice daily. She underwent echocardiogram which showed preserved ejection fraction of 50-55% and mild pulmonary hypertension. She was cleared by cardiology for discharge home. Her iron studies came back showing severe iron deficiency with a ferritin of 6. I discussed with the patient and she has not been taking oral iron. I recommended that she start taking iron 325 mg once daily. I did suggest a colonoscopy as she has not had one in the past, she is not interested in doing that at this time and I asked her to continue to follow with her PCP regarding her severe iron deficiency anemia. She denies any dark stools or unusual bleeding. Warm handoff was given to Dr. Tolbert. Follow-up: Patient will follow-up with her digital analyst out of [place] in 1-2 weeks, she'll follow up with Dr. Tolbert in 1 week, for tonight increased to 100 mg twice daily, ferrous sulfate 325 mg oral daily. Patient seen and examined at bedside. Doing well. Denies any chest pain, lightheadedness, dizziness, diaphoresis. Vital signs reviewed and stable. General: nontoxic, no distress, appears at stated age Cardiovascular: S1S2 reg, no murmur, positive posterior tibial pulse bilateral, Lungs: CTA bilateral, no rhonchi, no rales , no accessory muscle use Ext: no gross muscle atrophy, no edema b/l lower extremities, no contractures Neuro: CN II-XI grossly intact, no focal neuro deficits Psych: Alert, oriented, appropriate affect A total of 25 minutes of time were spent preparing this complex discharge summary. Patient was discharged on 04/28/23. This dictation was prepared using [employer] voice recognition software. Though every attempt is made to correct errors during dictation some may still exist. Plan - Discharge Summary Discharge Rx Participant: No New Discharge Prescriptions: New Ferrous Sulfate [Iron (65 MG Elemental)] 325 mg PO DAILY #30 tab Flecainide [Tambocor] 100 mg PO Q12HR #120 tab Continue Cholecalciferol [Vitamin D3 (25 Mcg = 1000 Iu)] 50 mcg PO DAILY Apixaban [Eliquis] 5 mg PO BID Atorvastatin [Lipitor] 40 mg PO HS Aspirin EC [Ecotrin Low Dose] 81 mg PO DAILY Discontinued Flecainide [Tambocor] 50 mg PO Q12HR Discharge Medication List Apixaban [Eliquis] 5 mg PO BID 04/27/23 [History] Aspirin EC [Ecotrin Low Dose] 81 mg PO DAILY 04/27/23 [History] Atorvastatin [Lipitor] 40 mg PO HS 04/27/23 [History] Cholecalciferol [Vitamin D3 (25 Mcg = 1000 Iu)] 50 mcg PO DAILY 04/27/23 [History] Ferrous Sulfate [Iron (65 MG Elemental)] 325 mg PO DAILY #30 tab 04/28/23 [Rx] Flecainide [Tambocor] 100 mg PO Q12HR #120 tab 04/28/23 [Rx] Follow up Appointment(s)/Referral(s): Juan Diego Tolbert MD [Primary Care Provider] - 05/02/23 1:00 pm Patient Instructions/Handouts: A-fib (Atrial Fibrillation) (GEN), Cardioversion (DC) Activity/Diet/Wound Care/Special Instructions: Activity: As tolerated Diet: Heart Healthy Special Instructions: Please call your digital analyst in the morning for an appointment in the next 1-2 weeks. Please return if rapid heart rate, shortness of breath, light headedness, dizziness. Discharge Disposition: HOME SELF-CARE
== END 2023-04-28 16:15 | disposition home or self-care (01) | DRG 310 ==
LOC: EC 13:41 → 3SCARD 16:04
PROVIDERS: ADMIT Internal Medicine; ATTEND Internal Medicine
DX: I48.0 Paroxysmal atrial fibrillation (principal); I27.20 Pulmonary hypertension, unspecified; D50.9 Iron deficiency anemia, unspecified; E78.5 Hyperlipidemia, unspecified; I48.3 Typical atrial flutter; Z79.01 Long term (current) use of anticoagulants; Z79.82 Long term (current) use of aspirin; Z79.899 Other long term (current) drug therapy; Z86.73 Personal history of transient ischemic attack (TIA), and cerebral infarction without residual deficits
CPT/HCPCS: 36415; 71046; 80053; 80061; 82728; 83540; 83550; 83735; 84443; 84484; 85025; 85610; 85730; 92960; 93005; 93306; 96361; 96365; 99291

== ENCOUNTER 2023-05-05 08:39 | Inpatient (IN) | payer MEDICARE ==
[2023-05-05] MEDS ORDERED: FLECAINIDE 50 MG TAB PO STA (09:12)
[2023-05-05] MEDS ORDERED: DILTIAZEM DRIP BOLUS FROM BAG 1 MG SOLN IV ONE ×2 (09:13→21:24)
[2023-05-05] MEDS ORDERED: SODIUM CHLORIDE 0.9% 500 ML 500 ML IV STA (09:13)
--- NOTE | 2023-05-05 09:20 | ED ---
General Adult HPI - General Chief complaint: Arrhythmia/Palpitations Stated complaint: dizzy/Tachy Time Seen by Provider: 05/05/23 09:05 Source: patient, RN notes reviewed, old records reviewed Mode of arrival: ambulatory Limitations: no limitations - History of Present Illness Initial comments: This is a 73-year-old female with past medical history significant for atrial fibrillation. Patient states last night about 5:00 she started noticing her hea rt rate go up and all might long was about 130 beats a minute. Patient states she took her flecainide last night as scheduled. Patient states she just taken her morning dose which is at 9:00. Patient states she can feel her heart racing. Patient feels a little dizzy with it but denies chest pain or shortness of breath. Patient denies any recent fever chills. Patient denies any abdominal pain patient denies any dysuria hematuria urinary frequency. Patient denies any back pain. - Related Data Home Medications Medication Instructions Recorded Confirmed Apixaban [Eliquis] 5 mg PO BID 04/27/23 05/05/23 Aspirin EC [Ecotrin Low Dose] 81 mg PO DAILY 04/27/23 05/05/23 Atorvastatin [Lipitor] 40 mg PO HS 04/27/23 05/05/23 Previous Rx's Medication Instructions Recorded Ferrous Sulfate [Iron (65 MG 325 mg PO DAILY #30 tab 04/28/23 Elemental)] Flecainide [Tambocor] 100 mg PO Q12HR #120 tab 04/28/23 Allergies Allergy/AdvReac Type Severity Reaction Status Date / Time No Known Allergies Allergy Verified 05/05/23 09:12 Review of Systems ROS Statement: Those systems with pertinent positive or pertinent negative responses have been documented in the HPI. ROS Other: All systems not noted in ROS Statement are negative. 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 Patient is nontoxic and well- hydrated and is in no acute distress. ENT: Neck is soft and supple. No significant lymphadenopathy is noted. Oropharynx is clear. Moist mucous membranes. Neck has full range of motion without eliciting any pain. EYES: The sclera were anicteric and conjunctiva were pink and moist. Extraocular movements were intact and pupils were equal round and reactive to light. Eyelids were unremarkable. PULMONARY: Unlabored respirations. Good breath sounds bilaterally. No audible rales rhonchi or wheezing was noted. CARDIOVASCULAR: Patient is tachycardic with a regular rate about 130 beats a minute ABDOMEN: Soft and nontender with normal bowel sounds. SKIN: Skin is clear with no lesions or rashes and otherwise unremarkable. NEUROLOGIC: Patient is alert and oriented x3. Cranial nerves II through XII are grossly intact. Motor and sensory are also intact. Normal speech, volume and content. Symmetrical smile. MUSCULOSKELETAL: Normal extremities with adequate strength and full range of motion. No lower extremity swelling or edema. No calf tenderness. LYMPHATICS: No significant lymphadenopathy is noted PSYCHIATRIC: Normal psychiatric evaluation. Limitations: no limitations Course Vital Signs 05/05/23 08:47 Temperature 97.6 F Pulse Rate 133 H Respiratory 18 Rate Blood Pressure 108/79 O2 Sat by Pulse 97 Oximetry Medical Decision Making - Medical Decision Making EKG shows atrial flutter at 132 bpm QRS is 86 Q-T intervals 241 QTC is 319. Patient's EKG shows no ST segment elevation or depression. Was pt. sent in by a medical professional or institution (, PA, NANNY BABYSITTER, urgent care, hospital, or group home...) When possible be specific @ -No Did you speak to anyone other than the patient for history (EMS, parent, family, police, friend...)? What history was obtained from this source @ -No Did you review nursing and triage notes (agree or disagree)? Why? @ -I reviewed and agree with nursing and triage notes Were old charts reviewed (outside hosp., previous admission, EMS record, old EKG, old radiological studies, urgent care reports/EKG's, group home records)? Report findings @ -I reviewed prior charts and prior lab work on this patient Differential Diagnosis (chest pain, altered mental status, abdominal pain women, abdominal pain men, vaginal bleeding, weakness, fever, dyspnea, syncope, headache, dizziness, GI bleed, back pain, seizure, CVA, palpatations, mental health, musculoskeletal)? @ -Differential Palpitations Ventricular arrhythmias, atrial arrhythmias, myocardial infarction, anemia, thyrotoxicosis, electrolyte imbalance, hypokalemia, pulmonary embolism, pulmonary disease, drugs, alcohol, anxiety, stress.... This is not meant to be an all-inclusive list. EKG interpreted by me (3pts min.). @ -As above X-rays interpreted by me (1pt min.). @ -Chest x-ray showed no acute abnormality CT interpreted by me (1pt min.). @ -None done U/S interpreted by me (1pt. min.). @ -None done What testing was considered but not performed or refused? (CT, X-rays, U/S, labs)? Why? @ -None What meds were considered but not given or refused? Why? @ -None Did you discuss the management of the patient with other professionals (professionals i.e. , PA, NANNY BABYSITTER, lab, RT, psych nurse, social science teacher, blending supervisor, teacher, medical laboratory technical officer, case therapist)? Give summary @ -I spoke with some physicians and they agreed to admit the patient Was smoking cessation discussed for >3mins.? @ -No Was critical care preformed (if so, how long)? @ -35 minutes Were there social determinants of health that impacted care today? How? (Homelessness, low income, unemployed, alcoholism, drug addiction, transportation, low edu. Level, literacy, decrease access to med. care, skilled nursing, rehab)? @ -No Was there de-escalation of care discussed even if they declined (Discuss DNR or withdrawal of care, Hospice)? DNR status @ -No What co-morbidities impacted this encounter? (DM, HTN, Smoking, COPD, CAD, Cancer, CVA, ARF, Chemo, Hep., AIDS, mental health diagnosis, sleep apnea, morbid obesity)? @ -None Was patient admitted / discharged? Hospital course, mention meds given and route, prescriptions, significant lab abnormalities, going to OR and other per tinent info. @ -Patient received her flecainide and eliquis here in the emergency department so she had not taken. I started the patient a Cardizem and gave patient a Cardizem bolus of 5 mg and started on a 5 mg drip. She continued to be tachycardic. I spoke with some physicians he agreed to admit the patient admitted the patient remaining orders I consult cardiology Undiagnosed new problem with uncertain prognosis? @ -No Drug Therapy requiring intensive monitoring for toxicity (Heparin, Nitro, Insulin, Cardizem)? @ -No Were any procedures done? @ -No Diagnosis/symptom? @ -Atrial fibrillation rapid ventricular response Acute, or Chronic, or Acute on Chronic? @ -Acute Uncomplicated (without systemic symptoms) or Complicated (systemic symptoms)? @ -Complicated Side effects of treatment? @ -No Exacerbation, Progression, or Severe Exacerbation? @ -No Poses a threat to life or bodily function? How? (Chest pain, [place], [place], pneumonia, PE, COPD, DKA, ARF, appy, cholecystitis, CVA, Diverticulitis, Homicidal, Suicidal, threat to staff... and all critical care pts) @ -Yes this could lead to poor perfusion and end organ dysfunction - Lab Data Result diagrams: 05/05/23 09:34 05/05/23 09:34 Lab Results 05/05/23 05/05/23 05/05/23 Range/Units 09:34 09:34 09:34 WBC 7.4 (3.8-10.6) k/uL RBC 4.85 (3.80-5.40) m/uL Hgb 10.1 L (11.4-16.0) gm/dL Hct 33.8 L (34.0-46.0) % MCV 69.6 L (80.0-100.0) fL MCH 20.9 L (25.0-35.0) pg MCHC 30.0 L (31.0-37.0) g/dL RDW 20.3 H (11.5-15.5) % Plt Count 365 (150-450) k/uL MPV 7.0 Neutrophils % 83 % Lymphocytes % 9 % Monocytes % 7 % Eosinophils % 1 % Basophils % 0 % Neutrophils # 6.1 (1.3-7.7) k/uL Lymphocytes # 0.7 L (1.0-4.8) k/uL Monocytes # 0.5 (0-1.0) k/uL Eosinophils # 0.0 (0-0.7) k/uL Basophils # 0.0 (0-0.2) k/uL Hypochromasia Marked Poikilocytosis Slight Anisocytosis Moderate Microcytosis Marked PT 10.7 (9.0-12.0) sec INR 1.0 (<1.2) APTT 24.1 (22.0-30.0) sec Sodium 141 (137-145) mmol/L Potassium 4.2 (3.5-5.1) mmol/L Chloride 107 (98-107) mmol/L Carbon Dioxide 24 (22-30) mmol/L Anion Gap 10 mmol/L BUN 11 (7-17) mg/dL Creatinine 0.83 (0.52-1.04) mg/dL Est GFR (CKD-EPI)AfAm 83 (>60 ml/min/1.73 sqM) Est GFR (CKD-EPI)NonAf 72 (>60 ml/min/1.73 sqM) Glucose 94 (74-99) mg/dL Calcium 9.2 (8.4-10.2) mg/dL Magnesium 2.0 (1.6-2.3) mg/dL Total Bilirubin 0.6 (0.2-1.3) mg/dL AST 29 (14-36) U/L ALT 17 (4-34) U/L Alkaline Phosphatase 90 (38-126) U/L Total Protein 6.4 (6.3-8.2) g/dL Albumin 3.6 (3.5-5.0) g/dL Critical Care Time Critical Care Time: Yes Total Critical Care Time: 35 Disposition Clinical Impression: Atrial fibrillation with rapid ventricular response Disposition: ADMITTED IP TO THIS [facility] Referrals: Juan Diego Tolbert MD [Primary Care Provider] - 1-2 days Time of Disposition: 10:50
--- NOTE | 2023-05-05 09:45 | XR ---
EXAMINATION TYPE: XR chest 2V DATE OF EXAM: 05/05/2023 COMPARISON: 04/27/2023 HISTORY: Shortness of breath TECHNIQUE: Frontal and lateral views of the chest are obtained. FINDINGS: Scattered senescent parenchymal changes noted. Hyperinflation compatible with COPD. No evidence for infiltrate. No evidence for atelectasis. Stable fixed hiatal hernia. Heart size is stable. Mediastinal structures are stable and grossly unremarkable. No evidence for hilar prominence. Degenerative changes dorsal spine. IMPRESSION: 1. No evidence for acute pulmonary disease.
[2023-05-05] MEDS: DILTIAZEM 125 MG in SODIUM CHLORIDE 0.9% 100 ML IV SCH ×2 (09:57→21:21)
[2023-05-05 10:02] LABS: Anisocytosis Moderate; Basophils % (A) 0 %; Eosinophils % (A) 1 %; HCT 33.8 % (34.0-46.0); HGB 10.1 gm/dL (11.4-16.0); Hypochromasia Marked; Lymphocytes # (A) 0.7 k/uL (1.0-4.8); Lymphocytes % (A) 9 %; MCH 20.9 pg (25.0-35.0); MCV 69.6 fL (80.0-100.0); Microcytosis Marked; Monocytes # (A) 0.5 k/uL (0-1.0); Monocytes % (A) 7 %; Neutrophils # (A) 6.1 k/uL (1.3-7.7); Neutrophils % (A) 83 %; Platelet Count 365 k/uL (150-450); Poikilocytosis Slight; RBC 4.85 m/uL (3.80-5.40); RDW 20.3 % (11.5-15.5); WBC 7.4 k/uL (3.8-10.6)
[2023-05-05 10:10] LABS: Partial Thromboplastin Time 24.1 sec (22.0-30.0); Prothrombin Time 10.7 sec (9.0-12.0)
[2023-05-05 10:24] LABS: ALT 17 U/L (4-34); AST 29 U/L (14-36); African American GFR (CKD) 83 (>60 ml/min/1.73 sqM); Albumin 3.6 g/dL (3.5-5.0); Alkaline Phosphatase 90 U/L (38-126); Anion Gap 10 mmol/L; Blood Urea Nitrogen 11 mg/dL (7-17); Calcium 9.2 mg/dL (8.4-10.2); Carbon Dioxide 24 mmol/L (22-30); Chloride 107 mmol/L (98-107); Glucose 94 mg/dL (74-99); Non-African American GFR(CKD) 72 (>60 ml/min/1.73 sqM); Potassium 4.2 mmol/L (3.5-5.1); Sodium 141 mmol/L (137-145); Total Bilirubin 0.6 mg/dL (0.2-1.3); Total Protein 6.4 g/dL (6.3-8.2)
[2023-05-05] MEDS ORDERED: NITROGLYCERIN SL TABS 0.4 MG TAB SUBLINGUAL PRN (10:50)
--- NOTE | 2023-05-05 12:06 | P.HPIM ---
History of Present Illness H&P Date: 05/05/23 History of Presenting Illness: Patient is a very pleasant 73-year-old female with a past medical history of atrial fibrillation on anticoagulation with Eliquis and CVA with embolectomy in 2017. Patient reports she recently underwent cardioversion on 04/28/23 which initially resulted in successful conversion to sinus mechanism. Patient reports she was discharged home and has been taking flecainide 100 mg twice daily without any further episodes. Patient reports that up until last night she was feeling her baseline normal at stated she noticed while at rest she was having some palpitations. She reports she took her flecainide a little early and thought these would go away. Patient reports throughout the night she continued to have intermittent episodes of palpitations feeling as though her heart was racing accompanied by some dizziness/lightheadedness so she came to the emergency department for evaluation. Upon evaluation in the emergency department patient was found to have A. fib RVR with rates in 120s to 140s. Vital signs upon arrival blood pressure 108/79, heart rate 133, respiratory rate 18, temp 97.6F, and SpO2 97% on room air. EKG was completed showing atrial flutter with RVR at 132 bpm upon personal review and interpretation. X-ray completed negative for acute cardiopulmonary process. Labs completed and reviewed. CBC showing microcytic anemia with hemoglobin of 10.1 and at baseline level. Coagula patient profile normal findings. BMP unremarkable. Liver profile unremarkable. Troponin less than 0.012. Patient was started on Cardizem infusion and admitted under our services with consultation to cardiology. Review of systems: Pertinent positives and negatives as discussed in HPI, a complete review of systems was performed and all other systems are negative. Physical exam: Vital signs reviewed and stable. General: Nontoxic, no distress and appears stated age. Derm: Skin warm and dry, normal coloration for ethnicity. Head: Atraumatic, normocephalic and symmetric. Eyes: EOMs intact, no lid lag, and anicteric sclera Mouth: no lip lesions, mucus membranes moist Cardiovascular: regular rate and tachycardic rhythm, murmur, positive posterior tibial pulses bilaterally, and cap refill < 2 seconds. Lungs: Respirations even, regular, and unlabored on room air. Lungs CTA bilaterally, no rhonchi, no rales, no wheezing, and no accessory muscle usage. Abdominal: soft, nontender to palpation, no guarding, no appreciable organomegaly Ext: ROM intact. No gross muscle atrophy, no edema, no contractures Neuro: Speech clear, face symmetrical and CN II-XII grossly intact with no noted focal neuro deficits Psych: Alert and oriented to person, place, time, and situation. Appropriate and pleasant affect. Assessment and Plan of Care: Patient is a 73-year-old female with a past medical history of atrial fibrillation on anticoagulation with Eliquis and CVA with embolectomy in 2017. Patient reports she recently underwent cardioversion on 04/28/23 which initially resulted in successful conversion to sinus mechanism, however patient reports she began feeling palpitations last night which progressively worsened later ac companied by shortness of breath and dizziness/lightheadedness so she came to the emergency department for evaluation. Atrial flutter with RVR History of paroxysmal atrial fibrillation History of CVA status post embolectomy 2016 -Patient to continue anticoagulation with Eliquis 5 mg twice a day along with aspirin 81 mg daily, atorvastatin 40 mg daily, and flecainide 100 mg every 12 hours. -Continue Cardizem infusion and titrate to maintain ventricular rate 80-100 -Cardiology consulted, appreciate further recommendations -Telemetry monitoring -Trend troponins -Cardiac diet, NPO at midnight Data and imaging reviewed: -Vital signs upon arrival blood pressure 108/79, heart rate 133, respiratory rate 18, temp 97.6F, and SpO2 97% on room air. -EKG was completed showing atrial flutter with RVR at 132 bpm upon personal review and interpretation. -X-ray completed negative for acute cardiopulmonary process. -Labs completed and reviewed. CBC showing microcytic anemia with hemoglobin of 10.1 and at baseline level. Coagula patient profile normal findings. BMP unremarkable. Liver profile unremarkable. Troponin less than 0.012. The patient is admitted with an anticipated greater than 2 midnight stay for evaluation of atrial flutter with RVR CODE STATUS: Full code DVT prophylaxis: Eliquis Discussed with: Pt, ED Physician and RN Anticipated discharge date: Clinical course to determine Anticipated discharge place: Home Patient was seen independently by Nurse Practitioner. This document was prepared using [employer] dictation software. Please allow for errors in bumper machine operator while rare they do occur. 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 Past Anesthesia/Blood Transfusion Reactions: No Reported Reaction Past Psychological History: No Psychological Hx Reported Smoking Status: Never smoker Past Alcohol Use History: None Reported Past Drug Use History: None Reported - Past Family History Sister(s) Family Medical History: AFIB Mother Family Medical History: AFIB Medications and Allergies Home Medications Medication Instructions Recorded Confirmed Type Apixaban [Eliquis] 5 mg PO BID 04/27/23 05/05/23 History Aspirin EC [Ecotrin Low Dose] 81 mg PO DAILY 04/27/23 05/05/23 History Atorvastatin [Lipitor] 40 mg PO HS 04/27/23 05/05/23 History Ferrous Sulfate [Iron (65 MG 325 mg PO DAILY #30 tab 04/28/23 05/05/23 Rx Elemental)] Flecainide [Tambocor] 100 mg PO Q12HR #120 tab 04/28/23 05/05/23 Rx Allergies Allergy/AdvReac Type Severity Reaction Status Date / Time No Known Allergies Allergy Verified 05/05/23 09:12 Physical Exam Vitals: Vital Signs Temp Pulse Resp BP Pulse Ox 05/05/23 08:47 97.6 F 133 H 18 108/79 97 Intake and Output 05/04/23 05/05/23 05/05/23 22:59 06:59 14:59 Other: Weight 83.915 kg Results CBC & Chem 7: 05/05/23 09:34 05/05/23 09:34 Labs: Abnormal Lab Results - Last 24 Hours (Table) 05/05/23 Range/Units 09:34 Hgb 10.1 L (11.4-16.0) gm/dL Hct 33.8 L (34.0-46.0) % MCV 69.6 L (80.0-100.0) fL MCH 20.9 L (25.0-35.0) pg MCHC 30.0 L (31.0-37.0) g/dL RDW 20.3 H (11.5-15.5) % Lymphocytes # 0.7 L (1.0-4.8) k/uL
[2023-05-05] MEDS ORDERED: APIXABAN 5 MG TAB PO SCH (21:00)
[2023-05-05] MEDS: APIXABAN 5 MG TAB PO SCH (21:19)
[2023-05-05] MEDS: ATORVASTATIN 40 MG TAB PO SCH (21:19)
[2023-05-05] MEDS: FLECAINIDE 50 MG TAB PO SCH (21:20)
[2023-05-06] MEDS: ASPIRIN 81 MG PO SCH (08:30)
[2023-05-06] MEDS: ATORVASTATIN 40 MG TAB PO SCH ×2 (08:30→08:31)
[2023-05-06] MEDS: FLECAINIDE 50 MG TAB PO SCH ×2 (08:35→20:15)
[2023-05-06] MEDS: APIXABAN 5 MG TAB PO SCH ×2 (08:35→20:15)
[2023-05-06] MEDS: FERROUS SULFATE 325 MG TAB PO SCH (08:35)
[2023-05-06] MEDS ORDERED: ASPIRIN 325 MG TAB PO SCH (09:00)
[2023-05-06 10:28] LABS: Chol/HDL Ratio 1.99 Ratio; LDL Cholesterol,Calculated 48.3 mg/dL (0.0-131.0); VLDL Calculation 14.04 mg/dL (5.00-40.00)
[2023-05-06] MEDS ORDERED: SODIUM CHLORIDE 0.9% 1,000 ML IV SCH (11:15)
[2023-05-06] MEDS ORDERED: LACTATED RINGERS 1,000 ML IV ONE ×2 (12:56)
[2023-05-06] MEDS ORDERED: PROPOFOL 10 MG/ML 20 ML VIAL IV ONE (13:28)
--- NOTE | 2023-05-06 16:35 | P.PCN ---
Date of Procedure: 05/06/23 Description of Procedure: Synchronous cardioversion procedure Indication atrial flutter with rapid ventricular response not being controlled with rate controlling agents Patient was adequately anticoagulated with Eliquis 5 mg twice a day. Patient reports that she has not missed any doses of Eliquis and last 3-4 months. She has not had any bleeding complications. This medication was not held for any reasons. She had a cardioversion procedure done 1 week ago without any complications. Pacer pads was placed on the patient's chest. Anesthesia was provided by GRAPHIC COORDINATOR. Please refer to GRAPHIC COORDINATOR's notes for detailed description of anesthesia Synchronous cardioversion was performed at 150 J. The procedure was successful in one attempt. There was return of sinus rhythm which was confirmed with the twelve-lead ECG. Plan Discontinue Cardizem Start metoprolol tartrate 25 mg twice a day continue Eliquis 5 mg twice a day without any interruptions
--- NOTE | 2023-05-06 16:55 | P.PN ---
Subjective Progress Note Date: 05/06/23 Hospital course: Patient is a very pleasant 73-year-old female with a past medical history of atrial fibrillation on anticoagulation with Eliquis and CVA with embolectomy in 2017. Patient reports she recently underwent cardioversion on 04/28/23 which initially resulted in successful conversion to sinus mechanism. Patient reports she was discharged home and has been taking flecainide 100 mg twice daily without any further episodes. Patient reports that up until last night she was feeling her baseline normal at stated she noticed while at rest she was having some palpitations. She reports she took her flecainide a little early and thought these would go away. Patient reports throughout the night she continued to have intermittent episodes of palpitations feeling as though her heart was racing accompanied by some dizziness/lightheadedness so she came to the emergency department for evaluation. Upon evaluation in the emergency department patient was found to have A. fib RVR with rates in 120s to 140s. Vital signs upon arrival blood pressure 108/79, heart rate 133, respiratory rate 18, temp 97.6F, and SpO2 97% on room air. EKG was completed showing atrial flutter with RVR at 132 bpm upon personal review and interpretation. X-ray completed negative for acute cardiopulmonary process. Labs completed and reviewed. CBC showing microcytic anemia with hemoglobin of 10.1 and at baseline level. Coagula patient profile normal findings. BMP unremarkable. Liver pro file unremarkable. Troponin less than 0.012. Patient was started on Cardizem infusion and admitted under our services with consultation to cardiology. Patient remains in persistent atrial flutter with RVR with ventricular rate maintaining in the 120's. Cardiology evaluated and planning to take patient for cardioversion later today. Physical exam: Vital signs reviewed and stable. General: Nontoxic, no distress and appears stated age. Derm: Skin warm and dry, normal coloration for ethnicity. Head: Atraumatic, normocephalic and symmetric. Eyes: EOMs intact, no lid lag, and anicteric sclera Mouth: no lip lesions, mucus membranes moist Cardiovascular: regular rate and tachycardic rhythm, murmur, positive posterior tibial pulses bilaterally, and cap refill < 2 seconds. Lungs: Respirations even, regular, and unlabored on room air. Lungs CTA bilaterally, no rhonchi, no rales, no wheezing, and no accessory muscle usage. Abdominal: soft, nontender to palpation, no guarding, no appreciable organomegaly Ext: ROM intact. No gross muscle atrophy, no edema, no contractures Neuro: Speech clear, face symmetrical and CN II-XII grossly intact with no noted focal neuro deficits Psych: Alert and oriented to person, place, time, and situation. Appropriate and pleasant affect. Assessment and Plan of Care: Patient is a 73-year-old female with a past medical history of atrial fibrill ation on anticoagulation with Eliquis and CVA with embolectomy in 2017. Patient reports she recently underwent cardioversion on 04/28/23 which initially resulted in successful conversion to sinus mechanism, however patient reports she began feeling palpitations which progressively worsened accompanied by shortness of breath and dizziness/lightheadedness so she came to the emergency department for evaluation. Patient was found to be in atrial flutter with RVR. Atrial flutter with RVR History of paroxysmal atrial fibrillation History of CVA status post embolectomy 2016 -Patient to continue anticoagulation with Eliquis 5 mg twice a day along with aspirin 81 mg daily, atorvastatin 40 mg daily, and flecainide 100 mg every 12 hours. -Continue Cardizem infusion and titrate for goal ventricular rate 80-100 -Cardiology evaluated recommending cardiac ablation, however patient states she would like to have cardiac ablation completed by her primary nurse assessor and is in agreement to cardioversion which will be completed later today. -Telemetry monitoring -Troponins were trended overnight all negative at less than 0.0123 draws. CODE STATUS: Full code DVT prophylaxis: Eliquis Discussed with: Pt and RN Anticipated discharge date: Clinical course to determine Anticipated discharge place: Home Patient was seen independently by Nurse Practitioner. This document was prepared using [employer] dictation software. Please allow for errors in flight engineer manager while rare they do occur. Objective - Vital Signs Vital signs: Vital Signs Temp 97.6 F 05/05/23 08:47 Pulse 122 H 05/06/23 08:38 Resp 18 05/06/23 08:38 BP 102/81 05/06/23 08:38 Pulse Ox 97 05/06/23 08:38 FiO2 Intake & Output 05/05/23 05/06/23 05/06/23 18:59 06:59 18:59 Intake Total 31.916 84.917 Balance 31.916 84.917 Weight 83.915 kg Intake: Intake, IV Titration 31.916 84.917 Amount Diltiazem 125 mg In 84.917 Sodium Chloride 0.9% 100 ml @ 5 MG/HR 5 mls/hr IV .Q[facility]H [facility] Rx#:[id number] - Labs CBC & Chem 7: 05/05/23 09:34 05/05/23 09:34 Labs: Abnormal Lab Results - Last 24 Hours (Table) 05/05/23 Range/Units 09:34 Hgb 10.1 L (11.4-16.0) gm/dL Hct 33.8 L (34.0-46.0) % MCV 69.6 L (80.0-100.0) fL MCH 20.9 L (25.0-35.0) pg MCHC 30.0 L (31.0-37.0) g/dL RDW 20.3 H (11.5-15.5) % Lymphocytes # 0.7 L (1.0-4.8) k/uL
[2023-05-06] MEDS: METOPROLOL TARTRATE 25 MG TAB PO SCH (20:14)
[2023-05-07] MEDS: APIXABAN 5 MG TAB PO SCH (08:30)
[2023-05-07] MEDS: FERROUS SULFATE 325 MG TAB PO SCH (08:30)
[2023-05-07] MEDS: ASPIRIN 81 MG PO SCH (08:30)
[2023-05-07] MEDS: FLECAINIDE 50 MG TAB PO SCH (08:30)
--- NOTE | 2023-05-07 10:18 | P.DS ---
Providers Date of admission: 05/05/23 10:50 Expected date of discharge: 05/07/23 Attending physician: Diamond Zapien DO Consults: 05/05/23 10:50 Consult Physician Urgent Consulting Provider: [facility] Consult Reason/Comments: A. fib with rapid ventricular response Do you want consulting provider notified?: Yes Primary care physician: Juan Diego Tolbert MD Hospital Course: Discharge Diagnosis: Atrial flutter with RVR. Patient was started on IV Cardizem in addition to flecainide and metoprolol. Patient had persistent atrial flutter with RVR and underwent cardioversion on 05/06/23. Cardioversion was successful in converting patient to sinus mechanism. Salesperson Wigs recommending patient undergo cardiac ablation, patient currently declines states that she would like to follow up with her personal stevedoring superintendent. Medically, patient is stable, she has maintained sinus mechanism for 24 hours. Patient is medically stable for discharge at this time and to follow up outpatient with her stevedoring superintendent to further discuss cardiac ablation as recommended. Patient was started on metoprolol 25 mg twice daily in addition to continuation of anticoagulation with Eliquis 5 mg twice a day, aspirin 81 mg daily, atorvastatin 40 mg daily, and flecainide 100 mg every 12 hours. History of paroxysmal atrial fibrillation History of CVA status post embolectomy 2017 Hospital Course: Patient is a very pleasant 73-year-old female with a past medical history of atrial fibrillation on anticoagulation with Eliquis and CVA with embolectomy in 2017. Patient reports she recently underwent cardioversion on 04/28/23 which initially resulted in successful conversion to sinus mechanism. Patient reports she was discharged home and has been taking flecainide 100 mg twice daily without any further episodes. Patient reports that up until last night she was feeling her baseline normal at stated she noticed while at rest she was having some palpitations. She reports she took her flecainide a little early and thought these would go away. Patient reports throughout the night she continued to have intermittent episodes of palpitations feeling as though her heart was racing accompanied by some dizziness/lightheadedness so she came to the emergency department for evaluation. Upon evaluation in the emergency department patient was found to have A. fib RVR with rates in 120s to 140s. Vital signs upon arrival blood pressure 108/79, heart rate 133, respiratory rate 18, temp 97.6F, and SpO2 97% on room air. EKG was completed showing atrial flutter with RVR at 132 bpm upon personal review and interpretation. X-ray completed negative for acute cardiopulmonary process. Labs completed and reviewed. CBC showing microcytic anemia with hemoglobin of 10.1 and at baseline level. Coagula patient profile normal findings. BMP unremarkable. Liver profile unremarkable. Troponin less than 0.012. Patient was started on Cardizem infusion and admitted under our services with consultation to cardiology. Patient remains in persistent atrial flutter with RVR with ventricular rate maintaining in the 120's. Cardiology evaluated and initially recommended patient undergo cardiac ablation, patient declining stating she would like to follow-up with her primary stevedoring superintendent for further discussion and scheduling. Patient was taken for cardioversion on 05/06/23 which resulted in successful conversion to sinus mechanism. Patient is medically stable for discharge at this time she has remained in sinus mechanism for 24 hours. She was started on metoprolol 25 mg twice daily in addition to continuation of anticoagulation with Eliquis 5 mg twice a day, aspirin 81 mg daily, atorvastatin 40 mg daily, and flecainide 100 mg every 12 hours. Patient to follow up outpatient with her PCP in 1-2 days and with her stevedoring superintendent in 1 week. Physical exam: Vital signs reviewed and stable. General: Nontoxic, no distress and appears stated age. Derm: Skin warm and dry, normal coloration for ethnicity. Head: Atraumatic, normocephalic and symmetric. Eyes: EOMs intact, no lid lag, and anicteric sclera Mouth: no lip lesions, mucus membranes moist Cardiovascular:, murmur, positive posterior tibial pulses bilaterally, and cap refill < 2 seconds. Lungs: Respirations even, regular, and unlabored on room air. Lungs CTA bilaterally, no rhonchi, no rales, no wheezing, and no accessory muscle usage. Abdominal: soft, nontender to palpation, no guarding, no appreciable organomegaly Ext: ROM intact. No gross muscle atrophy, no edema, no contractures Neuro: Speech clear, face symmetrical and CN II-XII grossly intact with no noted focal neuro deficits Psych: Alert and oriented to person, place, time, and situation. Appropriate and pleasant affect. A total of 33 minutes of time were spent preparing this complex discharge summary. Pt was discharged on 05/07/23 at 10:11 AM Patient was seen independently by Nurse Practitioner. This document was prepared using [employer] dictation software. Please allow for errors in student nurse while rare they do occur. Patient Condition at Discharge: Stable Plan - Discharge Summary Discharge Rx Participant: No New Discharge Prescriptions: New Metoprolol Tartrate [Lopressor] 25 mg PO BID 30 Days #60 tab Continue Apixaban [Eliquis] 5 mg PO BID Ferrous Sulfate [Iron (65 MG Elemental)] 325 mg PO DAILY #30 tab Atorvastatin [Lipitor] 40 mg PO HS Aspirin EC [Ecotrin Low Dose] 81 mg PO DAILY Flecainide [Tambocor] 100 mg PO Q12HR #120 tab Discharge Medication List Apixaban [Eliquis] 5 mg PO BID 04/27/23 [History] Aspirin EC [Ecotrin Low Dose] 81 mg PO DAILY 04/27/23 [History] Atorvastatin [Lipitor] 40 mg PO HS 04/27/23 [History] Ferrous Sulfate [Iron (65 MG Elemental)] 325 mg PO DAILY #30 tab 04/28/23 [Rx] Flecainide [Tambocor] 100 mg PO Q12HR #120 tab 04/28/23 [Rx] Metoprolol Tartrate [Lopressor] 25 mg PO BID 30 Days #60 tab 05/07/23 [Rx] Follow up Appointment(s)/Referral(s): Jose Alberto Malloy MD [Medical Doctor] - 1 Week Juan Diego Tolbert MD [Primary Care Provider] - 1-2 days Patient Instructions/Handouts: Atrial Flutter (DC), A-fib (Atrial Fibrillation) (DC), Cardioversion (DC) Activity/Diet/Wound Care/Special Instructions: Activity: As tolerated. Take breaks as needed. Diet: Heart healthy and carb consistent diet. Avoid salts, or foods with hidden salts such as canned or boxed foods and frozen dinners. Extra salt makes your heart work harder and traps the fluid in your body for longer. Special Instructions: Take all of your medications as directed and remember to keep all of your doctor's appointments and follow-up as needed. As we discussed, it is of utmost importance to follow up outpatient with your c ardiologist regarding recommended cardiac ablation. I have attached contact information for our stevedoring superintendent, Dr. Malloy, as you requested in the event you are unable to get into your stevedoring superintendent office. Thank you for allowing us to participate in your care, it was truly a pleasure having you for our patient!!! Discharge Disposition: HOME SELF-CARE
[2023-05-07 10:45] VITALS: PULSE 57; RESP 14; TEMP 97.9
[2023-05-07] MEDS: METOPROLOL TARTRATE 25 MG TAB PO SCH (12:09)
[2023-05-07 12:34] VITALS: BP 105/68
== END 2023-05-07 12:18 | disposition home or self-care (01) | DRG 310 ==
LOC: EC 08:39 → 3SCARD 10:50
PROVIDERS: ADMIT Internal Medicine; ATTEND Internal Medicine
PROC: 5A2204Z Restoration of Cardiac Rhythm, Single (ICD-10-PCS; principal; 2023-05-06 07:30)
DX: I48.0 Paroxysmal atrial fibrillation (principal); F41.9 Anxiety disorder, unspecified; I48.92 Unspecified atrial flutter; D50.9 Iron deficiency anemia, unspecified; Z79.01 Long term (current) use of anticoagulants; Z79.82 Long term (current) use of aspirin; Z79.899 Other long term (current) drug therapy; Z86.73 Personal history of transient ischemic attack (TIA), and cerebral infarction without residual deficits; Z90.710 Acquired absence of both cervix and uterus
CPT/HCPCS: 36415; 71046; 80053; 80061; 83735; 84484; 85025; 85610; 85730; 92960; 93005; 96361; 96365; 96366; 96375; 99291

== ENCOUNTER 2023-05-27 11:10 | Day surgery (SDC) | payer MEDICARE ==
[2023-05-27] MEDS ORDERED: LACTATED RINGERS 1,000 ML IV ONE (12:22)
[2023-05-27 12:37] VITALS: TEMP 97.2
[2023-05-27] MEDS ORDERED: PROPOFOL 10 MG/ML 20 ML VIAL IV ONE (12:43)
[2023-05-27] MEDS ORDERED: PHENYLEPHRINE-0.9% NACL SYG 1,000 MCG/10 ML SYRINGE ONE (12:43)
--- NOTE | 2023-05-27 12:57 | P.PCN ---
Date of Procedure: 05/27/23 Operative Findings: Cardioversion Report Performing physician He Lockhart M.D. Procedure performed Successful cardioversion of atrial fibrillation to normal sinus mechanism using 200 J at first attempt Indication Symptomatic atrial fibrillation Complication None Level of sedation The procedure was performed under deep sedation using propofol with EMBEDDED SOFTWARE MANAGER in the room Procedure description After obtaining an informed consent the patient was brought to the recovery room. Sedation was introduced using propofol with EMBEDDED SOFTWARE MANAGER in the room. Subsequently the patient cardioverted from atrial fibrillation to normal sinus mechanism using 200 J and first attempt Conclusion Successful cardioversion of atrial fibrillation to normal sinus mechanism using 200 J Postprocedure management Consider atrial fibrillation ablation Continue the current medical regimen Continue oral anticoagulation Follow-up with the patient
[2023-05-27 14:31] VITALS: BP 110/70; PULSE 59; RESP 16
== END 2023-05-27 14:38 ==
LOC: OR 11:10
PROVIDERS: ATTEND Internal Medicine Interventional Cardiology
DX: I48.0 Paroxysmal atrial fibrillation (principal); I10 Essential (primary) hypertension; E78.5 Hyperlipidemia, unspecified; Z82.49 Family history of ischemic heart disease and other diseases of the circulatory system; Z79.82 Long term (current) use of aspirin; Z79.01 Long term (current) use of anticoagulants; Z79.899 Other long term (current) drug therapy
CPT/HCPCS: 92960; J2704; J2371

== ENCOUNTER → 2023-06-24 | Outpatient (CLI) | payer MEDICARE ==
--- NOTE | 2023-06-27 08:35 | MM ---
Reason for Exam: Screening (asymptomatic). Last mammogram was performed 1 year(s) and 2 month(s) ago. Patient History: Menarche at age 16. First Full-Term at age 21. Left ovary removed at age 47. Right ovary removed at age 47. Hysterectomy at age 47. Postmenopausal. Maternal aunt had breast cancer, age 60. Sister had breast cancer, age 50. Risk Values: Allyson 5 year model risk: 3.0%. NCI Lifetime model risk: 8.1%. Prior Study Comparison: 08/03/2017 Screening Mammogram, [facility]. 07/29/2020 Bilateral Screening Mammogram, [facility]. 05/17/2022 Bilateral MG screening mammo w CAD, [facility]. Tissue Density: There are scattered fibroglandular densities. Findings: Analyzed By CAD. There is no suspicious group of microcalcifications or new suspicious mass. Overall Assessment: Negative, BI-RAD 1 Management: Screening Mammogram of both breasts in [address] [facility] will attempt to contact patient to return for supplemental views and ultrasound if indicated. Patient should continue monthly self-breast exams. A clinical breast exam by your physician is recommended on an annual basis. This exam should not preclude additional follow-up of suspicious palpable abnormalities. Note on Allyson scores and lifetime risk: 1. A Allyson score greater than 3% is considered moderate risk. If this is the case, consider specialist referral to assess eligibility for a risk reducing agent. 2. If overall lifetime risk for the development of breast cancer is 20% or higher, the patient may qualify for future screening with alternating mammogram and breast MRI. Electronically signed and approved by: Orlin Maxwell DO
== END | disposition home or self-care (01) ==
LOC: RADMAMWWP 11:04
PROVIDERS: ATTEND Family Medicine
DX: Z12.31 Encounter for screening mammogram for malignant neoplasm of breast (principal); Z78.0 Asymptomatic menopausal state; Z80.3 Family history of malignant neoplasm of breast
CPT/HCPCS: 77067

== ENCOUNTER → 2023-08-19 | Outpatient (CLI) | payer MEDICARE ==
[2023-08-19 18:34] LABS: HCT 40.5 % (37.2-46.3); MCH 24.5 pg (27.0-32.0); MCHC 29.6 g/dL (32.0-37.0); MCV 82.7 FL (80.0-97.0); NRBC Per 100 WBC 0 X 10*3/uL (0.00-0.01); Platelet Count 332 X 10*3/uL (140-440); RDW 16.8 % (11.5-14.5)
[2023-08-19 18:51] LABS: Blood Urea Nitrogen 13.4 mg/dL (9.0-27.0); Carbon Dioxide 25.6 mmol/L (21.6-31.8); Chloride 107 mmol/L (96-109); Potassium 4.3 mmol/L (3.5-5.5); Sodium 143 mmol/L (135-145)
== END | disposition home or self-care (01) ==
LOC: LABPAT 13:04
PROVIDERS: ATTEND Internal Medicine Clinical Cardiac Electrophysiology
DX: Z01.812 Encounter for preprocedural laboratory examination (principal); I48.92 Unspecified atrial flutter; I48.0 Paroxysmal atrial fibrillation
CPT/HCPCS: 80051; 82565; 84520; 85027

== ENCOUNTER 2023-08-30 09:04 | Day surgery (SDC) | payer MEDICARE ==
[2023-08-25 13:36] VITALS: BMI 31.1
[2023-08-30] MEDS: SODIUM CHLORIDE 0.9% 1,000 ML IV SCH (09:45)
[2023-08-30] MEDS ORDERED: PROPOFOL 10 MG/ML 20 ML VIAL IV ONE (09:54)
[2023-08-30] MEDS ORDERED: ROCURONIUM 10 MG/ML (5 ML VIAL) IV ONE (09:54)
[2023-08-30] MEDS ORDERED: GLYCOPYRROLATE 0.2 MG/ML 2 ML VIAL ONE (09:54)
[2023-08-30] MEDS ORDERED: NEOSTIGMINE 1 MG/ML 10 ML VIAL ONE (09:54)
[2023-08-30] MEDS ORDERED: HEPARIN SODIUM,PORCINE 5,000 UNIT/ML 1 ML VIAL ONE (09:54)
[2023-08-30] MEDS ORDERED: LIDOCAINE 1% INJ 10MG/ML (20 ML MDV) ONE ×2 (09:54→10:24)
[2023-08-30] MEDS ORDERED: PHENYLEPHRINE-0.9% NACL SYG 1,000 MCG/10 ML SYRINGE ONE (09:54)
[2023-08-30] MEDS ORDERED: SUCCINYLCHOLINE CHLORIDE 200 MG/10 ML VIAL IV ONE (09:54)
[2023-08-30] MEDS ORDERED: fentaNYL (PF) 50 MCG/ML 2 ML AMP ONE (09:54)
[2023-08-30] MEDS ORDERED: PHENYLEPHRINE 10 MG/ML VIAL ONE (09:54)
--- NOTE | 2023-08-30 10:25 | P.HPCAR ---
History of Present Illness This is Dr. Lowery dictating an H/P on this patient The patient was interviewed and examined IMPRESSION / ASSESSMENT: Persistent atrial flutter with RVR Paroxysmal atrial fibrillation with RVR History of CVA 6 years back PLAN: Ablation for typical atrial flutter today Resume flecainide thereafter for suppression of atrial fibrillation Proceed with A-fib ablation thereafter Patient presented with A-fib with rapid ventricular response today HPI Patient continues to complain of palpitations and shortness of breath on exerti on She has a normal LV function with mild left atrial enlargement in the past His stress test did not show any evidence for ischemia She denies any dizziness but she complains of palpitations which began last night ROS: No fever chills or rigors, no cough, phlegm or expectoration, no nausea, vomiting or diarrhea, no hematuria, dysuria, no musculoskeletal complaints, no strokes or seizures, no skin lesions. EXAMINATION: Rhythm is irregular and rapid No JVD Heart sounds are irregular no murmurs Abdomen is soft Extremities are warm No JVD REVIEW OF LABS, ECG & MEDICAL DATA Atorvastatin 40 mg daily Eliquis 5 mg twice daily Flecainide 100 mg twice daily and Toprol-XL 25 mg half tablet daily Physical Exam Vitals: Vital Signs Temp Pulse Resp BP Pulse Ox 08/30/23 09:44 97.8 F 172 H 18 126/94 94 L Intake and Output 08/29/23 08/30/23 08/30/23 22:59 06:59 14:59 Intake Total 20 Balance 20 Intake: IV 20 Other: Weight 79.2 kg Past Medical History Past Medical History: Atrial Fibrillation, CVA/TIA, Hyperlipidemia Additional Past Medical History / Comment(s): SEE DR LOWERY'S H&P. CVA-NO RESIDUAL PROBLEMS History of Any Multi-Drug Resistant Organisms: None Reported Past Surgical History: Hysterectomy Additional Past Surgical History / Comment(s): 2017 clot removed from brain Past Anesthesia/Blood Transfusion Reactions: No Reported Reaction Past Psychological History: No Psychological Hx Reported Smoking Status: Never smoker Past Alcohol Use History: None Reported Past Drug Use History: None Reported - Past Family History Sister(s) Family Medical History: AFIB Mother Family Medical History: AFIB Physical Examination Vital Signs Temp Pulse Resp BP Pulse Ox 08/30/23 09:44 97.8 F 172 H 18 126/94 94 L Intake and Output 08/29/23 08/30/23 08/30/23 22:59 06:59 14:59 Intake Total 20 Balance 20 Intake: IV 20 Other: Weight 79.2 kg Results Current Medications Generic Name Dose Route Start Last Admin Trade Name Salomonq PRN Reason Stop Dose Admin Sodium Chloride 1,000 mls @ 20 mls/hr 08/30/23 06:05 08/30/23 09:45 Saline 0.9% IV 09/29/23 06:06 20 mls .Q24H BERTHA Administration Lactated Ringer's 1,000 mls @ 20 mls/hr 08/30/23 06:05 Lactated Ringers IV 09/29/23 06:06 .Q24H BERTHA Intake and Output 08/29/23 08/30/23 08/30/23 22:59 06:59 14:59 Intake Total 20 Balance 20 Intake: IV 20 Other: Weight 79.2 kg Patient Weight 08/31/23 06:59 Weight 79.2 kg
[2023-08-30] MEDS: LIDOCAINE 1% INJ 10MG/ML (20 ML MDV) SQ ONE (10:30)
[2023-08-30] MEDS: HEPARIN SODIUM 1,000 UN/ML (10ML VL) IV ONE (10:41)
[2023-08-30] MEDS: HEPARIN SODIUM (1,000 UNIT/ML) 1,000 UNIT in SODIUM CHLORIDE 0.9% 1,000 ML IRRIGATION ONE (10:43)
--- NOTE | 2023-08-30 12:51 | P.EPPROC ---
- EP Procedure Note Electrophysiology Procedure Note: Diagnosis Typical atrial flutter on flecainide Paroxysmal atrial fibrillation, recurrent and symptomatic, associated with RVR Final diagnosis Successful atrial flutter ablation with proved bidirectional block Abnormal sinus node function Abnormal AV node function Details Patient was brought to the EP lab in a fasting state. Written informed consent was obtained prior to the procedure. Procedure was performed under general anesthesia Venous sheaths were placed in the right left femoral veins Diagnostic catheters were placed including high right atrium, His bundle area, coronary sinus and right ventricle Patient was in atrial fibrillation with RVR at the start of the study despite being on flecainide She received 5000 units of IV heparin bolus Intracardiac echo revealed no evidence for an intracardiac mass or thrombus Successful electrical cardioversion was performed to sinus rhythm Thereafter sinus cycle length 971 ms, [place] interval 148 ms, QRS 95 and QT 328 ms AH 71 and HV 45 ms Sinus node recovery times at 600, 500 and, 400 ms were 2264 ms, 1882 ms and 2081 ms AV node Wenckebach block 400 ms VA Wenckebach block 590 ms Ngozi response to Para-Hisian pacing Intracardiac echo revealed the eustachian ridge and the cavotricuspid isthmus which was thick with a subeustachian pouch and a post eustachian region closer to the IVC followed by a second ridge RF ablation was performed after 3D electroanatomic mapping A complete line of block was made This line was interrogated with pacing maneuvers Bidirectional block was proven with differential pacing All catheters removed to the end of the procedure Intracardiac echo did not reveal any pericardial effusion
--- NOTE | 2023-08-30 12:53 | P.PRLE ---
RE: Kirti De La Rosa Dear Dr. Didi Cotto underwent successful ablation for typical atrial flutter with confirmed bidirectional block with differential pacing She will continue Eliquis and continue with flecainide since she has paroxysmal atrial fibrillation Since she is experiencing breakthrough episodes of paroxysmal atrial fibrillation I will schedule her for an A-fib ablation after her groin heals up. Thank you for entrusting me with the care of the patient Warm regards Sincerely Tucker Lowery,
[2023-08-30] MEDS: LACTATED RINGERS 1,000 ML IV SCH (17:23)
[2023-08-30] MEDS: APIXABAN 5 MG TAB PO SCH (19:55)
[2023-08-30] MEDS: ATORVASTATIN 40 MG TAB PO SCH (19:55)
[2023-08-30] MEDS: FLECAINIDE 50 MG TAB PO SCH (19:55)
[2023-08-31 02:48] VITALS: PULSE 67
--- NOTE | 2023-08-31 08:03 | P.DS ---
Providers Attending physician: Tucker Lowery Primary care physician: Juan Diego Tolbert MD Hospital Course: Patient is doing well. She is ambulating around the room. Groins of healed well No hematoma Blood pressures in the normal range heart rates are in the 50s Twelve-lead EKG shows sinus mechanism No arrhythmias on telemetry Heart sounds are normal normal S1 normal S2 Lungs are clear no rhonchi no crackles No JVD Impression typical atrial flutter with RVR status post successful ablation yesterday Bidirectional block with differential pacing Sick sinus syndrome AV node disease Not on beta-blockers Paroxysmal atrial fibrillation with RVR with breakthrough episodes on flecainide Recommend Continue anticoagulation Proceed with an A-fib ablation for breakthrough episodes of A-fib followed by reduction in flecainide dose or complete discontinuation Uninterrupted anticoagulation Discussed with the patient Patient Condition at Discharge: Stable Plan - Discharge Summary Discharge Rx Participant: No New Discharge Prescriptions: Continue Apixaban [Eliquis] 5 mg PO BID Atorvastatin [Lipitor] 40 mg PO HS Flecainide [Tambocor] 100 mg PO Q12HR #120 tab Discharge Medication List Apixaban [Eliquis] 5 mg PO BID 04/27/23 [History] Atorvastatin [Lipitor] 40 mg PO HS 04/27/23 [History] Flecainide [Tambocor] 100 mg PO Q12HR #120 tab 04/28/23 [Rx] Activity/Diet/Wound Care/Special Instructions: Post EP study - Ablation instructions 1. Keep access sites dry for 2 days. 2. No heavy lifting or straining for 2 days. 3. Avoid bending the hips repeatedly for 2 days. 4. You may go up and down stairs slowly Call if the following is noted 1. Bleeding, increasing swelling or pain at the access sites. 2. Increasing chest discomfort, especially upon taking a deep breath. 3. Increasing shortness of breath, at rest or with exertion. 4. Undue cough / phlegm 5. Difficulty or pain while swallowing. 6. Pain or change in color in the extremities. 7. Fever, chills, rigors. 8. Increasing headache or neurologic symptoms. 9. Dizziness, fainting, palpitations
[2023-08-31 08:07] VITALS: BP 122/69; RESP 16; TEMP 98.1
== END 2023-08-31 10:55 | disposition home or self-care (01) ==
LOC: CATHEP 09:04 → 6NMEDSUR 11:51 → CATHEP 08-31 10:55
PROVIDERS: ATTEND Internal Medicine Clinical Cardiac Electrophysiology
DX: I48.3 Typical atrial flutter (principal); I48.0 Paroxysmal atrial fibrillation; I44.1 Atrioventricular block, second degree; E78.5 Hyperlipidemia, unspecified; Z86.73 Personal history of transient ischemic attack (TIA), and cerebral infarction without residual deficits; Z90.710 Acquired absence of both cervix and uterus; Z79.899 Other long term (current) drug therapy
CPT/HCPCS: 92960; 93662; 93653; 86900; 86901; 84443; 86850; C1759; C1894; C1769; C1760; C1730; C1893; C1732; J2001; J1644

== ENCOUNTER → 2023-10-19 | Outpatient (CLI) | payer MEDICARE ==
[2023-10-19 16:17] LABS: HCT 40.6 % (37.2-46.3); HGB 12.4 g/dL (12.0-15.0); MCH 25.9 pg (27.0-32.0); MCHC 30.5 g/dL (32.0-37.0); MCV 84.8 FL (80.0-97.0); Mean Platelet Volume 11.5 FL (9.5-12.2); NRBC Per 100 WBC 0 X 10*3/uL (0.00-0.01); Platelet Count 306 X 10*3/uL (140-440); RBC 4.79 X 10*6/uL (4.10-5.20); RDW 18.4 % (11.5-14.5); WBC 7.78 X 10*3/uL (4.50-10.00)
== END | disposition home or self-care (01) ==
LOC: LABPAT 11:31
PROVIDERS: ATTEND Internal Medicine Clinical Cardiac Electrophysiology
DX: Z01.812 Encounter for preprocedural laboratory examination (principal); I48.0 Paroxysmal atrial fibrillation
CPT/HCPCS: 80051; 82565; 84520; 85027

== ENCOUNTER → 2023-10-21 | Outpatient (CLI) | payer MEDICARE ==
[2023-10-21 16:30] LABS: Blood Urea Nitrogen 12.7 mg/dL (9.0-27.0); Carbon Dioxide 27.4 mmol/L (21.6-31.8); Chloride 107 mmol/L (96-109); Potassium 4.3 mmol/L (3.5-5.5); Sodium 143 mmol/L (135-145)
== END | disposition home or self-care (01) ==
LOC: LABPAT 12:20
PROVIDERS: ATTEND Internal Medicine Clinical Cardiac Electrophysiology
DX: I48.0 Paroxysmal atrial fibrillation (principal); Z01.812 Encounter for preprocedural laboratory examination
CPT/HCPCS: 80051; 82565; 84520

== ENCOUNTER 2023-10-31 12:12 | Day surgery (SDC) | payer MEDICARE ==
[2023-10-31] MEDS: SODIUM CHLORIDE 0.9% 1,000 ML IV ONE (14:16)
[2023-10-31 15:08] LABS: ALT 16 U/L (4-34); AST 34 U/L (14-36); African American GFR (CKD) 67 (>60 ml/min/1.73 sqM); Albumin 4.1 g/dL (3.5-5.0); Alkaline Phosphatase 111 U/L (38-126); Anion Gap 11 mmol/L; Blood Urea Nitrogen 14 mg/dL (7-17); Calcium 9.6 mg/dL (8.4-10.2); Carbon Dioxide 22 mmol/L (22-30); Chloride 108 mmol/L (98-107); Glucose 110 mg/dL (74-99); Non-African American GFR(CKD) 58 (>60 ml/min/1.73 sqM); Sodium 141 mmol/L (137-145); Total Bilirubin 0.8 mg/dL (0.2-1.3); Total Protein 7.3 g/dL (6.3-8.2)
[2023-10-31 15:15] LABS: Potassium 4.9 mmol/L (3.5-5.1)
[2023-10-31] MEDS ORDERED: ISOPROTERENOL 250 MCG/1.25 ML SYR IV ONE (16:19)
[2023-10-31] MEDS ORDERED: SUCCINYLCHOLINE CHLORIDE 200 MG/10 ML VIAL IV ONE (16:19)
[2023-10-31] MEDS ORDERED: PHENYLEPHRINE-0.9% NACL SYG 1,000 MCG/10 ML SYRINGE ONE (16:19)
[2023-10-31] MEDS ORDERED: MIDAZOLAM 2 MG/2 ML VIAL ONE (16:19)
[2023-10-31] MEDS ORDERED: LIDOCAINE 1% INJ 10MG/ML (20 ML MDV) ONE ×2 (16:19→16:34)
[2023-10-31] MEDS ORDERED: PROPOFOL 10 MG/ML 20 ML VIAL IV ONE (16:19)
[2023-10-31] MEDS ORDERED: HEPARIN SODIUM,PORCINE 10,000 UNIT/ML 1 ML VIAL ONE (16:19)
[2023-10-31] MEDS ORDERED: fentaNYL (PF) 50 MCG/ML 2 ML AMP ONE (16:19)
--- NOTE | 2023-10-31 16:32 | P.HPCAR ---
History of Present Illness This is Dr. Lowery dictating an H/P on this patient The patient was interviewed and examined IMPRESSION / ASSESSMENT: Paroxysmal atrial fibrillation, symptomatic Intolerant of beta-blockers Breakthrough episodes on flecainide Hypertension Normal TSH Normal left ventricular systolic function and Lexiscan Cardiolite stress test PLAN: Pulmonary vein isolation for management of paroxysmal recurrent atrial fibrillation Continue anticoagulation with Eliquis HPI Patient continues to have episodes of palpitations. She is intolerant of beta- blockers She is on flecainide Denies any chest discomfort dizziness lightheadedness loss of consciousness in the last 1 to 2 weeks No fever chills cough expectoration or pulmonary symptoms ROS: No fever chills or rigors, no cough, phlegm or expectoration, no nausea, vomiting or diarrhea, no hematuria, dysuria, no musculoskeletal complaints, no strokes or seizures, no skin lesions. EXAMINATION: Afebrile This morning her pulse rate upon admission was 170 beats a minute PAF with RVR 125/80 mmHg Heart sounds when I examined were normal rhythm was regular Breath sounds are clear no rhonchi no crackles No JVD No lower extremity edema REVIEW OF LABS, ECG & MEDICAL DATA Sodium 141, potassium 4.9 both normal BUN and creatinine normal Liver function normal Physical Exam Vitals: Vital Signs Temp Pulse Resp BP BP Pulse Ox 10/31/23 14:29 98 F 178 H 16 152/105 125/80 97 Intake and Output 10/31/23 10/31/23 10/31/23 06:59 14:59 22:59 Intake Total 50 Balance 50 Intake: IV 50 Other: Weight 78.4 kg Past Medical History Past Medical History: Atrial Fibrillation, CVA/TIA, Hyperlipidemia Additional Past Medical History / Comment(s): SEE DR LOWERY'S H&P. 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 from brain Past Anesthesia/Blood Transfusion Reactions: No Reported Reaction Smoking Status: Never smoker - Past Family History Sister(s) Family Medical History: AFIB Mother Family Medical History: AFIB Physical Examination Vital Signs Temp Pulse Resp BP BP Pulse Ox 10/31/23 14:29 98 F 178 H 16 152/105 125/80 97 Intake and Output 10/31/23 10/31/23 10/31/23 06:59 14:59 22:59 Intake Total 50 Balance 50 Intake: IV 50 Other: Weight 78.4 kg Results 10/31/23 14:26 Cardiac Enzymes 10/31/23 Range/Units 14:26 AST 34 (14-36) U/L Comprehensive Metabolic Panel 10/31/23 Range/Units 14:26 Sodium 141 (137-145) mmol/L Potassium 4.9 (3.5-5.1) mmol/L Chloride 108 H (98-107) mmol/L Carbon Dioxide 22 (22-30) mmol/L BUN 14 (7-17) mg/dL Creatinine 0.99 (0.52-1.04) mg/dL Glucose 110 H (74-99) mg/dL Calcium 9.6 (8.4-10.2) mg/dL AST 34 (14-36) U/L ALT 16 (4-34) U/L Alkaline Phosphatase 111 (38-126) U/L Total Protein 7.3 (6.3-8.2) g/dL Albumin 4.1 (3.5-5.0) g/dL Current Medications Generic Name Dose Route Start Last Admin Trade Name Freq PRN Reason Stop Dose Admin Sodium Chloride 1,000 mls @ 20 mls/hr 10/31/23 05:54 Saline 0.9% IV 11/30/23 05:55 .Q24H BERTHA Lactated Ringer's 1,000 mls @ 20 mls/hr 10/31/23 05:54 Lactated Ringers IV 11/30/23 05:55 .Q24H BERTHA Intake and Output 10/31/23 10/31/23 10/31/23 06:59 14:59 22:59 Intake Total 50 Balance 50 Intake: IV 50 Other: Weight 78.4 kg Patient Weight 11/01/23 06:59 Weight 78.4 kg 10/31/23 14:26
[2023-10-31] MEDS: LIDOCAINE 1% INJ 10MG/ML (20 ML MDV) SQ ONE (16:48)
[2023-10-31] MEDS: HEPARIN SOD,PORK IN 0.45% NACL 25,000 UNIT in 0.45% NACL 1 250ML.BAG IV ONE (16:50)
[2023-10-31] MEDS: IOPAMIDOL-370 100ML BTL INJ ONE (18:31)
[2023-10-31] MEDS ORDERED: ACETAMINOPHEN TAB 325 MG TAB PO PRN (18:37)
--- NOTE | 2023-10-31 18:50 | P.EPPROC ---
- EP Procedure Note Electrophysiology Procedure Note: PROCEDURE A. fib ablation with PVI and left atrial septal ablation DIAGNOSIS Paroxysmal atrial fibrillation, symptomatic, refractory to therapy Intolerance to AV chris blocking drugs History of CVA, age greater than 65, hypertension RESULT No left atrial appendage mass seen on intracardiac echo Mildly thickened pericardium with trace effusion particularly posteriorly Successful A. fib ablation/pulmonary vein isolation of all veins using cryo- ablation Left atrial septal ablation Complete entrance block in all 4 veins confirmed No evidence for phrenic nerve injury Esophageal deflection YES, extreme left sided Termination of atrial fibrillation during left superior pulmonary vein ablation. Isolation occurred at 20 seconds, termination of atrial fibrillation occurred in 2 minutes PROCEDURE DETAILS Written informed consent prior to procedure. Patient brought to the EP lab. General anesthesia given. Heparin administered. A city maintained above 300 seconds Both groins prepped and draped per protocol and venous sheaths placed. Esophagus intubated, circa catheter for temperature monitoring an endoscope for possible esophageal deflection. Phrenic nerve monitoring performed. Esophageal temperature monitoring performed. Esophageal deflection performed if circa catheter overlapping with the balloon or circa temperature less than 27.5C Intracardiac echocardiography performed. Pericardium evaluated. Left atrial appendage evaluated. Left atrium evaluated along with pulmonary veins Transseptal catheterization performed under fluoroscopic guidance and intracardiac echo guidance Cryoablation sheath exchanged, balloon catheter along with achieve catheter placed in the left atrium. Pulmonary veins isolated in the following sequence: Left superior pulmonary vein followed by left inferior pulmonary vein, followed by right inferior pulmonary vein and lastly right superior pulmonary vein. Phrenic nerve stimulation along with capture thresholds within the SVC and right superior pulmonary vein to identify the phrenic nerve proximity to the cryo- balloon. Pulmonary veins isolated and confirmed with entrance and exit block. Phrenic nerve integrity confirmed at the end of the procedure Ablation of the left atrial roof performed with sequential lesions from the left superior to the right superior pulmonary veins. Ablation of the electrograms confirmed Ablation of the left atrial septum performed with cannulation of the superior branch of the right inferior or the inferior branch of the right superior vein to achieve ablation of the posterior septum of the left atrium. Ablation of electrograms confirmed Termination of atrial fibrillation during left superior pulmonary vein ablation Diagnostic catheters for the high right atrium, His bundle, coronary sinus placed. LA and RA pressures recorded RA pressure: 11/3/7 LA pressure: 16/3/10 Diagnostic EP study with coronary sinus pacing and recording Baseline measurements: Sinus cycle length 900 ms, IL interval 140 ms, QRS 74 ms and QT interval 300 ms AH 78 and HV 39 ms Isopril infused wide open No inducible atrial fibrillation Venous sheaths were removed and hemostasis assured with a closure device. Patient extubated and transferred to recovery Increase procedural time Termination of atrial fibrillation during left superior pulmonary vein ablation Isolation of the left superior pulmonary vein and 20-25 seconds Termination of atrial fibrillation in 120-130 seconds Total ablation time for 4 minutes, 2 minutes greater than time to termination Subsequently an extra lesion just outside the left superior pulmonary vein as well as another XL lesion in the nika between the left superior and left inferior pulmonary veins Extreme left sided esophagus requiring multiple short lesions during ablation of the left-sided nika and left inferior pulmonary vein PROCEDURES PERFORMED Diagnostic EP study CS pacing and recording Left and right transseptal catheterization Catheter the mapping of the tachycardia Intracardiac echocardiography Pulmonary vein isolation with transseptal and comprehensive EPS, [id number] Extended procedure duration Drug infusion, +[id number] Left atrial roof line, +[id number] Linear ablation, left atrium, +[id number] Electrical cardioversion with a synchronized shock across the chest [id number]
--- NOTE | 2023-10-31 18:52 | P.PRLE ---
RE: Kirti De La Rosa Dear Dr. Didi Cotto has paroxysmal atrial fibrillation refractory to drug therapy She underwent successful A-fib ablation. Termination of atrial fibrillation occurred during left superior pulmonary vein isolation Since she has had a history of stroke and has a [id number] score of 4, she should continue anticoagulation lifelong Sincerely Tucker Lowery
[2023-10-31] MEDS: APIXABAN 5 MG TAB PO SCH (20:37)
[2023-10-31] MEDS: ACETAMINOPHEN IV (For NPO) 1,000 MG in EMPTY BAG 1 BAG IVPB ONE (20:37)
[2023-10-31] MEDS: SODIUM CHLORIDE 0.9% 1,000 ML IV SCH (20:38)
[2023-10-31] MEDS: FLECAINIDE 50 MG TAB PO SCH (20:38)
[2023-10-31] MEDS: LACTATED RINGERS 1,000 ML IV SCH (20:38)
[2023-10-31] MEDS: ATORVASTATIN 40 MG TAB PO SCH (20:38)
[2023-11-01 08:25] VITALS: BP 103/66; PULSE 64; RESP 17; TEMP 98
== END 2023-11-01 10:38 | disposition home or self-care (01) ==
LOC: CATHEP 12:12 → 3SCARD 18:21 → CATHEP 11-01 10:38
PROVIDERS: ATTEND Internal Medicine Clinical Cardiac Electrophysiology
DX: I48.0 Paroxysmal atrial fibrillation (principal); I10 Essential (primary) hypertension; E78.5 Hyperlipidemia, unspecified; Z79.01 Long term (current) use of anticoagulants; Z86.73 Personal history of transient ischemic attack (TIA), and cerebral infarction without residual deficits; Z79.899 Other long term (current) drug therapy
CPT/HCPCS: 93623; 93656; 93657; 86900; 86901; 80053; 86850; C1894 ×2; C1769 ×3; C1760; C1730 ×2; C1759; C1893; C1733; C1766; J2001; J0131; Q9967; J1644

== ENCOUNTER → 2024-10-26 | Outpatient (CLI) | payer MEDICARE ==
--- NOTE | 2024-10-26 11:38 | MM ---
Reason for Exam: Screening (asymptomatic). Last mammogram was performed 1 year(s) and 4 month(s) ago. Patient History: Menarche at age 16. First Full-Term at age 21. Left ovary removed at age 47. Right ovary removed at age 47. Hysterectomy at age 47. Postmenopausal. Maternal aunt had breast cancer, age 60. Sister had breast cancer, age 50. Risk Values: Allyson 5 year model risk: 3.0%. NCI Lifetime model risk: 7.7%. Prior Study Comparison: 07/29/2020 Bilateral Screening Mammogram, [facility]. 05/17/2022 Bilateral MG screening mammo w CAD, [facility]. 06/24/2023 Bilateral MG screening mammo w CAD, [facility]. Tissue Density: The breasts are heterogeneously dense, which may obscure small masses. Findings: Analyzed By CAD. There is no suspicious group of microcalcifications in either breast. Focal asymmetry seen in the lower half of the left MLO view only 5.7 cm from the nipple. Additional views are recommended of the left breast. Overall Assessment: Incomplete: need additional imaging evaluation, BI-RAD 0 Management: Diagnostic Mammogram of the left breast. . Patient should continue monthly self-breast exams. A clinical breast exam by your physician is recommended on an annual basis. This exam should not preclude additional follow-up of suspicious palpable abnormalities. Note on Allyson scores and lifetime risk: 1. A Allyson score greater than 3% is considered moderate risk. If this is the case, consider specialist referral to assess eligibility for a risk reducing agent. 2. If overall lifetime risk for the development of breast cancer is 20% or higher, the patient may qualify for future screening with alternating mammogram and breast MRI. [facility], , 10/26/2024 11:34 AM. Electronically signed and approved by: Fabricio Medrano M.D. Radiologis
== END | disposition home or self-care (01) ==
LOC: RADMAMWWP 10:56
PROVIDERS: ATTEND Family Medicine
DX: Z12.31 Encounter for screening mammogram for malignant neoplasm of breast (principal); R92.333 Mammographic heterogeneous density, bilateral breasts; Z78.0 Asymptomatic menopausal state; Z80.3 Family history of malignant neoplasm of breast
CPT/HCPCS: 77067

== ENCOUNTER → 2024-10-30 | Outpatient (CLI) | payer MEDICARE ==
--- NOTE | 2024-10-30 11:25 | MM ---
Reason for Exam: Additional evaluation requested from abnormal screening. Last screening mammogram was performed less than 1 month ago. Patient History: Menarche at age 16. First Full-Term at age 21. Left ovary removed at age 47. Right ovary removed at age 47. Hysterectomy at age 47. Postmenopausal. Maternal aunt had breast cancer, age 60. Sister had breast cancer, age 50. Risk Values: Allyson 5 year model risk: 3.0%. NCI Lifetime model risk: 7.7%. Prior Study Comparison: 05/17/2022 Bilateral MG screening mammo w CAD, [facility]. 06/24/2023 Bilateral MG screening mammo w CAD, [facility]. 10/26/2024 Bilateral MG screening mammo w CAD, [facility]. Tissue Density: Left: There are scattered areas of fibroglandular density. Findings: Analyzed By CAD. The questioned inferior asymmetric density on the MLO view disperses on additional views compatible with benign superimposition shadow. Overall Assessment: Benign, BI-RAD 2 Management: Screening Mammogram of both breasts in 1 year. See note below in regards to the patient's increased 5 year Allyson score. Results were given to the patient verbally at the time of exam. Patient should continue monthly self-breast exams. A clinical breast exam by your physician is recommended on an annual basis. This exam should not preclude additional follow-up of suspicious palpable abnormalities. Note on Allyson scores and lifetime risk: 1. A Allyson score greater than 3% is considered moderate risk. If this is the case, consider specialist referral to assess eligibility for a risk reducing agent. 2. If overall lifetime risk for the development of breast cancer is 20% or higher, the patient may qualify for future screening with alternating mammogram and breast MRI. [facility], , 10/30/2024 11:22 AM. Electronically signed and approved by: Bret Piña M.D. Radiologist
== END | disposition home or self-care (01) ==
LOC: RADMAMWWP 10:56
PROVIDERS: ATTEND Family Medicine
DX: R92.8 Other abnormal and inconclusive findings on diagnostic imaging of breast (principal); R92.322 Mammographic fibroglandular density, left breast; Z78.0 Asymptomatic menopausal state; Z80.3 Family history of malignant neoplasm of breast
CPT/HCPCS: 77061; 77065